=== PATIENT | female | born 1990 | race Caucasian/White ===

== ENCOUNTER 2019-03-26 11:28 | Inpatient (IN) | payer SELFPAY ==
[2019-03-26] MEDS ORDERED: ACETAMINOPHEN 1000 MG/100 ML VIAL (NON FORMULARY) IVPB ONE (12:45)
--- NOTE | 2019-03-26 12:55 | PDOC ---
History of Present Illness - General Chief Complaint: Cold Symptoms Stated Complaint: FEVER/COUGH/HEADACHE Time Seen by Provider: 03/26/19 11:42 - History of Present Illness Initial Comments: 03/26/19 12:53 28-year-old female with a past medical history of renal stones presents for evaluation of back pain x3 days with associated fevers. Past History - Past Medical History Allergies/Adverse Reactions: Allergies Allergy/AdvReac Type Severity Reaction Status Date / Time No Known Allergies Allergy Verified 03/26/19 11:38 Home Medications: Ambulatory Orders Cephalexin [Keflex] 500 mg PO BID 12/02/14 Mv-Mn/Iron/FA/Herbal/Digestive [ One Tablet] 1 each PO DAILY 12/02/14 Ibuprofen [Motrin -] 400 mg PO QID #28 tablet 12/27/14 Anemia: No Asthma: No Cancer: No Cardiac Disorders: No COPD: No Diabetes: No HTN: No Kidney Stones: Yes (with stent) Seizures: No Thyroid Disease: No - Surgical History Abdominal Surgery: No Appendectomy: No Cardiac Surgery: No - Reproductive History Cervical CA: No Dysfunctional Uterine Bleeding: No Ectopic : No Endometrial CA: No Polycystic Ovaries: No Therapeutic (s) & number: No Tubal Ligation: No - Immunization History Immunization Up to Date: No - Psycho Social/Smoking Cessation Hx Smoking Status: Yes Smoking History: Never smoked Have you smoked in the past 12 months: No Number of Cigarettes Smoked Daily: 1 Hx Alcohol Use: No Drug/Substance Use Hx: No Substance Use Type: None Hx Substance Use Treatment: No Review of Systems - Review of Systems Constitutional: Yes: Fever Musculoskeletal: Yes: Back Pain *Physical Exam - Vital Signs Last Vital Signs Temp Pulse Resp BP Pulse Ox 100.5 F H 120 H 18 97/70 98 03/26/19 11:35 03/26/19 11:35 03/26/19 11:35 03/26/19 11:35 03/26/19 11:35 - Physical Exam Comments: 03/26/19 12:54 GENERAL: The patient is awake, alert, and fully oriented, in no acute distress. HEAD: Normal with no signs of trauma. EYES: sclera anicteric, conjunctiva clear. ENT: Ears normal NECK: Normal range of motion LUNGS: Breath sounds equal, clear to auscultation bilaterally. No wheezes, and no crackles. HEART: S1 and S2 without murmur, rub or gallop. ABDOMEN: Diffuse tenderness with the CVA tenderness. EXTREMITIES: Normal range of motion, no edema. No clubbing or cyanosis. No cords, erythema, or tenderness. NEUROLOGICAL: Cranial nerves II through XII grossly intact. Normal speech, normal gait. PSYCH: Normal mood, normal affect. SKIN: Warm, Dry, normal turgor, no rashes or lesions noted. Medical Decision Making - Medical Decision Making 03/26/19 12:54 We will transfer patient to the main emergency room. Tylenol for pain control fluids started as well. Preliminary lab work started will discuss with emergency room attending Discharge - Discharge Information Problems reviewed: Yes Clinical Impression/Diagnosis: Back pain - Follow up/Referral - Patient Discharge Instructions - Post Discharge Activity
[2019-03-26] MEDS ORDERED: SODIUM CHLORIDE 0.9% 500 ML INFUS.BAG IV ONE (13:18)
[2019-03-26] MEDS ORDERED: CEFTRIAXONE 1,000 MG in DEXTROSE 5%-WATER - 50 ML IVPB ONE (13:19)
[2019-03-26] MEDS ORDERED: CEFTRIAXONE 1 GM/50 ML BAG ONE (13:22)
[2019-03-26] MEDS ORDERED: ACETAMINOPHEN INJECTION 100 ML IVPB ONE (13:22)
[2019-03-26 13:28] LABS: BASO % 0.1 % (0-2.0); EOS % 0.9 % (0-4.5); HEMATOCRIT 32.6 % (32.4-45.2); HEMOGLOBIN 10.7 GM/dL (10.7-15.3); LYMPH % 12.8 % (8-40); MCH 30.9 pg (25.7-33.7); MCHC 32.8 g/dl (32.0-36.0); MEAN CELL VOLUME 94.3 fl (80-96); MEAN PLT VOLUME 7.9 fl (7.5-11.1); MONO % 4.2 % (3.8-10.2); PLATELET COUNT 235 K/MM3 (134-434); RBC 3.46 M/mm3 (3.60-5.2); RDW 17.9 % (11.6-15.6)
[2019-03-26 14:26] LABS: EPI CELLS 5.5 /HPF (0-5/HPF); HYALINE CASTS 21 /lpf (0-8); URINE APPEARANCE TURBID; URINE BACTERIA 1665.4 /hpf (NEGATIVE); URINE BILIRUBIN NEGATIVE (NEGATIVE); URINE COLOR YELLOW; URINE GLUCOSE (UA) NEGATIVE (NEGATIVE); URINE KETONE NEGATIVE (NEGATIVE); URINE LEUK ESTERASE 3+ (NEGATIVE); URINE NITRITE POSITIVE (NEGATIVE); URINE PROTEIN 2+ (NEGATIVE); URINE RBC 12 /hpf (0-4); URINE UROBILINOGEN 0.2 mg/dL (0.2-1.0); URINE WBC 440 /hpf (0-5)
[2019-03-26] MEDS ORDERED: SODIUM CHLORIDE 1,000 ML IV STA (14:49)
--- NOTE | 2019-03-26 14:50 | PDOC ---
History of Present Illness - General Chief Complaint: Cold Symptoms Stated Complaint: FEVER/COUGH/HEADACHE Time Seen by Provider: 03/26/19 11:42 Past History - Past Medical History Allergies/Adverse Reactions: Allergies Allergy/AdvReac Type Severity Reaction Status Date / Time No Known Allergies Allergy Verified 03/26/19 11:38 Home Medications: Ambulatory Orders Cephalexin [Keflex] 500 mg PO BID 12/02/14 Mv-Mn/Iron/FA/Herbal/Digestive [ One Tablet] 1 each PO DAILY 12/02/14 Ibuprofen [Motrin -] 400 mg PO QID #28 tablet 12/27/14 - Psycho Social/Smoking Cessation Hx Smoking Status: Yes Smoking History: Never smoked Have you smoked in the past 12 months: No Number of Cigarettes Smoked Daily: 1 Hx Alcohol Use: No Drug/Substance Use Hx: No Substance Use Type: None Hx Substance Use Treatment: No *Physical Exam - Vital Signs Last Vital Signs Temp Pulse Resp BP Pulse Ox 100.5 F H 120 H 18 97/70 98 03/26/19 11:35 03/26/19 11:35 03/26/19 11:35 03/26/19 11:35 03/26/19 11:35 ED Treatment Course - LABORATORY CBC & Chemistry Diagram: 03/26/19 13:17 03/26/19 13:17 Discharge - Discharge Information Clinical Impression/Diagnosis: Back pain - Follow up/Referral - Patient Discharge Instructions - Post Discharge Activity
--- NOTE | 2019-03-26 15:29 | PDOC ---
*Physical Exam - Vital Signs Last Vital Signs Temp Pulse Resp BP Pulse Ox 100.5 F H 120 H 18 97/70 98 03/26/19 11:35 03/26/19 11:35 03/26/19 11:35 03/26/19 11:35 03/26/19 11:35 ED Treatment Course - LABORATORY CBC & Chemistry Diagram: 03/30/19 06:15 03/30/19 06:15 Medical Decision Making - Medical Decision Making 28 year old female with PMH nephrolithiasis s/p left ureter stent presented to ED for fever x3 days. Pt reported her fever has been ranging from 100-103F. She reported bilateral low back pain, low bilateral flank pain x3-5 days. She reported she is due for her period around today or tomorrow. She reported nausea /vomiting, lightheadedness. She denied pelvic pain, pelvic discharge, vaginal bleeding, abdominal pain, chest pain, shortness of breath. Pt reported LMP "a month ago" would not give dates, reported her period is regular every 25 days. Initial Vital Signs Temp Pulse Resp BP Pulse Ox 100.5 F H 120 H 18 97/70 98 03/26/19 11:35 03/26/19 11:35 03/26/19 11:35 03/26/19 11:35 03/26/19 11:35 Febrile. Tachycardic. No tachypnea. Hypotensive. No hypoxia on room air. Laboratory Last Values WBC 11.0 K/mm3 (4.0-10.0) H 03/26/19 13:17 RBC 3.46 M/mm3 (3.60-5.2) L 03/26/19 13:17 Hgb 10.7 GM/dL (10.7-15.3) 03/26/19 13:17 Hct 32.6 % (32.4-45.2) D 03/26/19 13:17 MCV 94.3 fl (80-96) 03/26/19 13:17 MCH 30.9 pg (25.7-33.7) D 03/26/19 13:17 MCHC 32.8 g/dl (32.0-36.0) 03/26/19 13:17 RDW 17.9 % (11.6-15.6) H 03/26/19 13:17 Plt Count 235 K/MM3 (134-434) 03/26/19 13:17 MPV 7.9 fl (7.5-11.1) 03/26/19 13:17 Absolute Neuts (auto) 9.0 K/mm3 (1.5-8.0) H 03/26/19 13:17 Neutrophils % 82.0 % (42.8-82.8) D 03/26/19 13:17 Lymphocytes % 12.8 % (8-40) D 03/26/19 13:17 Monocytes % 4.2 % (3.8-10.2) 03/26/19 13:17 Eosinophils % 0.9 % (0-4.5) 03/26/19 13:17 Basophils % 0.1 % (0-2.0) 03/26/19 13:17 Nucleated RBC % 0 % (0-0) 03/26/19 13:17 Sodium 136 mmol/L (136-145) 03/26/19 14:47 Potassium 3.3 mmol/L (3.5-5.1) L 03/26/19 14:47 Chloride 110 mmol/L (98-107) H 03/26/19 14:47 Carbon Dioxide 18 mmol/L (21-32) L 03/26/19 14:47 Anion Gap 9 MMOL/L (8-16) 03/26/19 14:47 BUN 2.6 mg/dL (7-18) L* 03/26/19 14:47 Creatinine 0.6 mg/dL (0.55-1.3) 03/26/19 14:47 Est GFR (CKD-EPI)AfAm 144.78 03/26/19 14:47 Est GFR (CKD-EPI)NonAf 124.92 03/26/19 14:47 Random Glucose 103 mg/dL (74-106) 03/26/19 14:47 Calcium 7.4 mg/dL (8.5-10.1) L 03/26/19 14:47 Total Bilirubin 0.3 mg/dL (0.2-1) 03/26/19 14:47 AST 27 U/L (15-37) 03/26/19 14:47 ALT 19 U/L (13-61) 03/26/19 14:47 Alkaline Phosphatase 96 U/L (45-117) 03/26/19 14:47 Total Protein 5.7 g/dl (6.4-8.2) L 03/26/19 14:47 Albumin 2.0 g/dl (3.4-5.0) L 03/26/19 14:47 Beta HCG, Quant > 371617.0 mIU/ml 03/26/19 14:47 Urine Color Yellow 03/26/19 13:00 Urine Appearance Turbid 03/26/19 13:00 Urine pH 7.0 (5.0-8.0) 03/26/19 13:00 Ur Specific [place] 1.009 (1.010-1.035) L 03/26/19 13:00 Urine Protein 2+ (NEGATIVE) H 03/26/19 13:00 Urine Glucose (UA) Negative (NEGATIVE) 03/26/19 13:00 Urine Ketones Negative (NEGATIVE) 03/26/19 13:00 Urine Blood 2+ (NEGATIVE) H 03/26/19 13:00 Urine Nitrite Positive (NEGATIVE) H 03/26/19 13:00 Urine Bilirubin Negative (NEGATIVE) 03/26/19 13:00 Urine Urobilinogen 0.2 mg/dL (0.2-1.0) 03/26/19 13:00 Ur Leukocyte Esterase 3+ (NEGATIVE) H 03/26/19 13:00 Urine WBC (Auto) 440 /hpf (0-5) 03/26/19 13:00 Urine RBC (Auto) 12 /hpf (0-4) 03/26/19 13:00 Urine Casts (Auto) 21 /lpf (0-8) 03/26/19 13:00 U Pathogenic Cast Auto None seen /lpf (NEGATIVE) 03/26/19 13:00 U Epithel Cells (Auto) 5.5 /HPF (0-5/HPF) 03/26/19 13:00 Urine Bacteria (Auto) 1665.4 /hpf (NEGATIVE) 03/26/19 13:00 Urine HCG, Qual Positive 03/26/19 13:00 Leukocytosis with left shift. UTI. Urine positive. Beta Quant >200,000. Results given to patient, she reported she thought she was 2/2 breast tenderness and made an appointment with "my doctor". When I asked which doctor she reported her OBGYN. Pt reported she does not think she wants to keep this . Cannot CT pt for nephrolithiasis assessment, will US B/L kidneys to assess for hydro. Will do pelvic US. 03/26/19 16:54 Kidney US report: Name: JEANNIE LEWIS DEPARTMENT OF RADIOLOGY Phys: Iris Danielson RESIDENT : 1990 Age: 28 Sex: F [facility] Acct: [id number] Loc: [address] Exam Date: 03/26/19 Status: [facility] [place] [id number] Unit Number: [id number] EXAM#: TYPE/EXAM: RESULT: [id number] US/KIDNEY / RENAL US Renal ultrasound Clinical information: back pain, UTI, history of stones, Marked left hydronephrosis is seen. There is partial imaging of a nephroureteral stent in place. There is possible visualization of several nonobstructing calculi within the upper pole left renal calyx. Mild right hydronephrosis is noted. No obvious right renal calculus is seen within the limitations of sonography. The kidneys appear unremarkable in position, cortical thickness, echogenicity and size. Each kidney measures approximately 10.4 cm in length. No gross mass lesion is identified. There is no obvious perirenal fluid collection. Impression: Marked left hydronephrosis. There is partial imaging of a nephroureteral stent in place. Possible nonobstructing left renal calyceal calculi. Mild right hydronephrosis. Reported By: Harry Pino MD 03/26/19 1642 TVUS report: Name: JEANNIE LEWIS DEPARTMENT OF RADIOLOGY Phys: Iris Danielson RESIDENT : 1990 Age: 28 Sex: F [facility] Acct: [id number] Loc: [address] Exam Date: 03/26/19 [facility] [place] [address] Unit Number: [id number] EXAM#: TYPE/EXAM: RESULT: [id number] US/ LIMITED US limited ultrasound Clinical information: low back pain, fever, positive urine test The exam demonstrates a single viable intrauterine gestation at approximately 18 weeks 3 days. cardiac rate 144 BPM. Posterior placenta. There is a possible marginal placenta previa. Amniotic fluid volume appears unremarkable on a qualitative basis. The partially visualized structures demonstrate no gross sonographic abnormality. The cervix appears closed measuring 4.4 cm in length. Impression: Single viable intrauterine gestation at approximately 18 weeks 3 days as noted above. Possible marginal placenta previa. Correlate with follow-up sonography. Reported By: Harry Pino MD [id number] Medications ordered: Zosyn IV 03/26/19 17:[address] Kirkland about the patient, he reported the physician who placed the stent must be her urologist now. Pt does not remember who placed the stent, only that she had it done at [facility] and then was transferred to [place]. Will call [facility] to find out who the urologist was. 03/26/19 17:18 [facility]'s reported pt had procedure done in [address] Larios. Will page Dr. Larios. 03/26/19 17:53 Vital Signs Pulse Rate 100 H 03/26/19 17:30 Respiratory Rate 20 03/26/19 17:30 Blood Pressure 94/53 L 03/26/19 17:30 O2 Sat by Pulse Oximetry (%) 98 03/26/19 17:30 Tachycardia improving with Tylenol and IVF. Lactate 0.6 03/26/19 18:27 Dr. Larios paged again. 03/26/19 18:54 Dr. Kirkland's office paged. They reported Dr. Jernigan is continuity clerk. Pt signed out to night resident, pending Urology consult and recommendations. Discharge - Discharge Information Problems reviewed: Yes Clinical Impression/Diagnosis: Obstructive uropathy UTI (urinary tract infection) Qualifiers: Urinary tract infection type: acute cystitis Hematuria presence: without hematuria Qualified Code(s): N30.00 - Acute cystitis without hematuria Qualifiers: Weeks of gestation: 18 weeks Qualified Code(s): Z3A.18 - 18 weeks gestation of Condition: Guarded - Follow up/Referral - Patient Discharge Instructions - Post Discharge Activity
[2019-03-26 15:43] LABS: ALK PHOS 96 U/L (45-117); ANION GAP 9 MMOL/L (8-16); BILIRUBIN,TOTAL 0.3 mg/dL (0.2-1); CALCIUM 7.4 mg/dL (8.5-10.1); CHLORIDE 110 mmol/L (98-107); CO2 18 mmol/L (21-32); CREATININE 0.6 mg/dL (0.55-1.3); GLUCOSE,RANDOM 103 mg/dL (74-106); POTASSIUM 3.3 mmol/L (3.5-5.1); SGOT/AST 27 U/L (15-37); SGPT/ALT 19 U/L (13-61); SODIUM 136 mmol/L (136-145); TOT PROT 5.7 g/dl (6.4-8.2)
[2019-03-26 15:57] LABS: BLOOD UREA NITROGEN 2.6 mg/dL (7-18)
[2019-03-26] MEDS ORDERED: SODIUM CHLORIDE 1,769 ML IV ONE (16:05)
[2019-03-26] MEDS ORDERED: PIPERACILLIN/TAZOB 3.375 GM 3.375 GM in DEXTROSE 5%-WATER - 50 ML IVPB ONE (16:36)
[2019-03-26] MEDS ORDERED: PIPERACILLIN/TAZOB 3.375 GM 3.375 GM/50 ML BAG IVPB ONE (17:06)
--- NOTE | 2019-03-26 17:30 | PDOC ---
Documentation entered by Malia Hook SCRIBE, acting as scribe for Lawson Stoddard MD. Lawson Stoddard MD: This documentation has been prepared by the Miladys aviles Nirvannie, SCRIBE, under my direction and personally reviewed by me in its entirety. I confirm that the documentation accurately reflects all work, treatment, procedures, and medical decision making performed by me. Attending Attestation - Resident Resident Name: JagjitIris - ED Attending Attestation I have performed the following: I have examined & evaluated the patient, The case was reviewed & discussed with the resident, I agree w/resident's findings & plan, Exceptions are as noted - HPI HPI: 03/26/19 16:35 The patient is a 28 year old female, with a significant past medical history of nephrolithiasis (s/p left ureter stenting), who presents to the emergency department with, 3 days of fever (Tmax 103F) with associated bilateral flank and low back pain for approximately 3-5 days. Patient notes she is scheduled to have her menses tomorrow, however she is on testing here today. Pt notes, stent was placed many years ago and is still present. She denies any vaginal bleeding or abnormal vaginal discharge. She denies any dysuria, hematuria, frequency, or urgency. She denies any chest pain or shortness of breath. Denies headaches, focal weakness/numbness. Allergies: NKDA - Physicial Exam PE: 03/26/19 17:17 GENERAL: Awake, alert, and fully oriented, in no acute distress. Non toxic EYES: PERRLA, EOMI, sclera anicteric, conjunctiva clear ENT: Oropharynx clear without exudates. Moist mucosa NECK: Normal ROM, supple, no lymphadenopathy, JVD, or masses LUNGS: Breath sounds equal, clear to auscultation bilaterally. No wheezes, and no crackles HEART: Tachy to 110 but regular, normal S1 and S2, no murmurs, rubs or gallops ABDOMEN: Soft, nontender, normoactive bowel sounds. No guarding, no rebound. Gravid uterus : L>R CVAT EXTREMITIES: Normal range of motion, no edema. No clubbing or cyanosis. No cords, erythema, or tenderness. WWP. NEUROLOGICAL: Normal speech, cranial nerves intact, equal strength and sensation b/l SKIN: Warm, Dry, normal turgor, no rashes or lesions noted. - Medical Decision Making 03/26/19 17:21 28-year-old female presents the emergency department with flank pain, fever, + UA all concerning for pyelonephritis. Patient with a history of a ureteral stent that was placed 7 years ago at [facility] by Dr. Larios. Urine test is positive. Pt did not know she was . Transvaginal ultrasound confirms an 18-week viable . Patient's clinical presentation today is concerning for pyelonephritis with possible obstructing stone in the setting of . She has hydronephrosis noted on her ultrasound left greater than right. Due to the possible obstruction , patient was broadened from ceftriaxone to Zosyn. Plan to discuss stent management and obstruction with Dr. Larios and admit 03/26/19 19:[address] Larios, stent to be removed tomorrow Pt to be admitted for continued IV abx, further mgmt
--- NOTE | 2019-03-26 19:19 | PDOC ---
*Physical Exam - Vital Signs Last Vital Signs Temp Pulse Resp BP Pulse Ox 100.5 F H 100 H 20 94/53 L 98 03/26/19 11:35 03/26/19 17:30 03/26/19 17:30 03/26/19 17:30 03/26/19 17:30 - Physical Exam Comments: Patient signed out by Dr. Danielson 28yo F with fever and bilateral flank pain Discussed case with Dr. Bert Larios, urologist, who will recommends admission, NPO after midnight, fluids, strained urine. Plan to remove the stent tomorrow. 03/26/19 19:15 MB sent to symphony team by nc-- Received reply that symphony is not workplace relations adviser. Call to Dr. Kern, , which went to voicemail. Will try to call again. 03/26/19 19:[address] Kern who accepted patient for admission under med/ surg admission. Per her request, consult to Dr. Gong, ID, placed. 03/26/19 19:42 ED Treatment Course - LABORATORY CBC & Chemistry Diagram: 03/26/19 13:17 03/26/19 14:47 - ADDITIONAL ORDERS Additional order review: Laboratory Results 03/26/19 03/26/19 03/26/19 17:15 17:15 14:47 Sodium 136 Potassium 3.3 L Chloride 110 H Carbon Dioxide 18 L Anion Gap 9 BUN 2.6 L* Creatinine 0.6 Est GFR (CKD-EPI)AfAm 144.78 Est GFR (CKD-EPI)NonAf 124.92 Random Glucose 103 Lactic Acid 0.6 Calcium 7.4 L Total Bilirubin 0.3 AST 27 ALT 19 Alkaline Phosphatase 96 Total Protein 5.7 L Albumin 2.0 L Beta HCG, Quant > 180693.0 Urine Color Urine Appearance Urine pH Ur Specific [place] Urine Protein Urine Glucose (UA) Urine Ketones Urine Blood Urine Nitrite Urine Bilirubin Urine Urobilinogen Ur Leukocyte Esterase Urine WBC (Auto) Urine RBC (Auto) Urine Casts (Auto) U Pathogenic Cast Auto U Epithel Cells (Auto) Urine Bacteria (Auto) Urine HCG, Qual Blood Type O POSITIVE Antibody Screen Negative 03/26/19 03/26/19 03/26/19 13:17 13:00 13:00 Sodium Cancelled Potassium Cancelled Chloride Cancelled Carbon Dioxide Cancelled Anion Gap Cancelled BUN Cancelled Creatinine Cancelled Est GFR (CKD-EPI)AfAm Cancelled Est GFR (CKD-EPI)NonAf Cancelled Random Glucose Cancelled Lactic Acid Calcium Cancelled Total Bilirubin Cancelled AST Cancelled ALT Cancelled Alkaline Phosphatase Cancelled Total Protein Cancelled Albumin Cancelled Beta HCG, Quant Urine Color Yellow Urine Appearance Turbid Urine pH 7.0 Ur Specific [place] 1.009 L Urine Protein 2+ H Urine Glucose (UA) Negative Urine Ketones Negative Urine Blood 2+ H Urine Nitrite Positive H Urine Bilirubin Negative Urine Urobilinogen 0.2 Ur Leukocyte Esterase 3+ H Urine WBC (Auto) 440 Urine RBC (Auto) 12 Urine Casts (Auto) 21 U Pathogenic Cast Auto None seen U Epithel Cells (Auto) 5.5 Urine Bacteria (Auto) 1665.4 Urine HCG, Qual Positive Blood Type Antibody Screen 03/26/19 13:17 RBC 3.46 L MCV 94.3 MCHC 32.8 RDW 17.9 H MPV 7.9 Neutrophils % 82.0 D Lymphocytes % 12.8 D Monocytes % 4.2 Eosinophils % 0.9 Basophils % 0.1 - Medications Given in the ED: ED Medications Discontinued Medications Generic Name Dose Route Start Last Admin Trade Name Freq PRN Reason Stop Dose Admin Acetaminophen 1,000 mg 03/26/19 12:45 03/26/19 13:32 Ofirmev Injection - IVPB 03/26/19 12:46 1,000 mg ONCE ONE Administration Ceftriaxone Sodium 1,000 mg/ 50 mls @ 100 mls/hr 03/26/19 13:19 03/26/19 13: 32 Dextrose IVPB 03/26/19 13:48 100 mls/hr ONCE ONE Administration Sodium Chloride 1,000 mls @ 1,000 mls/hr 03/26/19 14:49 03/26/19 15:17 Normal Saline - IV 03/26/19 15:48 1,000 mls/hr ASDIR STA Administration Sodium Chloride 1,769 mls @ 884.5 mls/hr 03/26/19 16:05 03/26/19 16:57 Normal Saline - 30 ml/kg infuse over 2 hr (1769 ml) 03/26/19 18:04 Not Given IV ONCE ONE Piperacillin Sod/Tazobactam 50 mls @ 100 mls/hr 03/26/19 16:36 03/26/19 17:23 Sod 3.375 gm/ Dextrose IVPB 03/26/19 17:05 100 mls/hr ONCE ONE Administration Protocol Sodium Chloride 1,000 ml 03/26/19 13:18 03/26/19 13:32 Normal Saline - IV 03/26/19 13:19 1,000 ml ONCE ONE Administration Discharge - Discharge Information Problems reviewed: Yes Clinical Impression/Diagnosis: Obstructive uropathy UTI (urinary tract infection) Qualifiers: Urinary tract infection type: acute cystitis Hematuria presence: without hematuria Qualified Code(s): N30.00 - Acute cystitis without hematuria Qualifiers: Weeks of gestation: 18 weeks Qualified Code(s): Z3A.18 - 18 weeks gestation of Condition: Guarded - Admission Yes - Follow up/Referral - Patient Discharge Instructions - Post Discharge Activity
--- NOTE | 2019-03-26 20:14 | HP ---
Admitting History and Physical - Primary Care Physician PCP: Efra Kern - Admission History of Present Illness: 28 year old female with PMH nephrolithiasis s/p left ureter stent presented to ED for fever x3 days. Pt reported her fever has been ranging from 100-103F. She reported bilateral low back pain, low bilateral flank pain x3-5 days. She reported she is due for her period around today or tomorrow. She reported nausea /vomiting, lightheadedness. She denied pelvic pain, pelvic discharge, vaginal bleeding, abdominal pain, chest pain, shortness of breath. Pt reported LMP "a month ago" would not give dates, reported her period is regular every 25 days. - Past Medical History ...LMP: 07/24/12 ...: Yes Heme/Onc: Yes: Anemia - Smoking History Smoking history: Never smoked Have you smoked in the past 12 months: No Aproximately how many cigarettes per day: 1 - Alcohol/Substance Use Hx Alcohol Use: No - Social History History of Recent Travel: No Home Medications - Allergies Allergies/Adverse Reactions: Allergies Allergy/AdvReac Type Severity Reaction Status Date / Time No Known Allergies Allergy Verified 03/26/19 11:38 - Home Medications Home Medications: Ambulatory Orders Mv-Mn/Iron/FA/Herbal/Digestive [ One Tablet] 1 each PO DAILY 12/02/14 Ibuprofen [Motrin -] 600 mg PO TID PRN 03/28/19 Physical Examination Vital Signs: Vital Signs Temperature 100.5 F H 03/26/19 11:35 Pulse Rate 100 H 03/26/19 17:30 Respiratory Rate 20 03/26/19 17:30 Blood Pressure 94/53 L 03/26/19 17:30 O2 Sat by Pulse Oximetry (%) 98 03/26/19 17:30 Constitutional: Yes: No Distress HENT: Yes: Atraumatic Neck: Yes: Supple Cardiovascular: Yes: Regular Rate and Rhythm Respiratory: Yes: CTA Bilaterally Gastrointestinal: Yes: Normal Bowel Sounds Extremities: Yes: WNL Edema: No Neurological: Yes: Alert, Oriented Labs: CBC, BMP 03/26/19 13:17 03/26/19 14:47 Problem List - Problems (1) Obstructive uropathy Assessment/Plan: dr Barb rodgers..will take her to OR tomorrow Code(s): N13.9 - OBSTRUCTIVE AND REFLUX UROPATHY, UNSPECIFIED (2) Assessment/Plan: will put obgyn consult 18 weeks , patient was unaware of it...as per patient Code(s): Z33.1 - STATE, INCIDENTAL Qualifiers: Weeks of gestation: 18 weeks Qualified Code(s): Z3A.18 - 18 weeks gestation of (3) UTI (urinary tract infection) Assessment/Plan: iv abx id consult Code(s): N39.0 - URINARY TRACT INFECTION, SITE NOT SPECIFIED Qualifiers: Urinary tract infection type: acute cystitis Hematuria presence: without hematuria Qualified Code(s): N30.00 - Acute cystitis without hematuria (4) Acute urinary tract infection Code(s): N39.0 - URINARY TRACT INFECTION, SITE NOT SPECIFIED (5) Kidney stone Assessment/Plan: will be seen by urology in am OR? Code(s): N20.0 - CALCULUS OF KIDNEY Assessment/Plan Laboratory Tests 03/26/19 03/26/19 03/26/19 13:00 13:00 13:17 WBC 11.0 H RBC 3.46 L Hgb 10.7 Hct 32.6 D MCV 94.3 MCH 30.9 D MCHC 32.8 RDW 17.9 H Plt Count 235 MPV 7.9 Absolute Neuts (auto) 9.0 H Total Counted Neutrophils % 82.0 D Neutrophils % (Manual) Band Neutrophils % Lymphocytes % 12.8 D Lymphocytes % (Manual) Monocytes % 4.2 Monocytes % (Manual) Eosinophils % 0.9 Eosinophils % (Manual) Basophils % 0.1 Basophils % (Manual) Myelocytes % (Man) Promyelocytes % (Man) Blast Cells % (Manual) Nucleated RBC % 0 Metamyelocytes Differential Comment Hypochromia Toxic Granulation Platelet Estimate Platelet Comment Polychromasia Poikilocytosis Anisocytosis Microcytosis Macrocytosis Ovalocytes Elizabeth Cells PT with INR INR PTT (Actin FS) Sodium Potassium Chloride Carbon Dioxide Anion Gap BUN Creatinine Est GFR (CKD-EPI)AfAm Est GFR (CKD-EPI)NonAf Random Glucose Lactic Acid Calcium Phosphorus Magnesium Total Bilirubin AST ALT Alkaline Phosphatase Total Protein Albumin Beta HCG, Quant Urine Color Yellow Urine Appearance Turbid Urine pH 7.0 Ur Specific [place] 1.009 L Urine Protein 2+ H Urine Glucose (UA) Negative Urine Ketones Negative Urine Blood 2+ H Urine Nitrite Positive H Urine Bilirubin Negative Urine Urobilinogen 0.2 Ur Leukocyte Esterase 3+ H Urine WBC (Auto) 440 Urine RBC (Auto) 12 Urine Casts (Auto) 21 U Pathogenic Cast Auto None seen U Epithel Cells (Auto) 5.5 Urine Bacteria (Auto) 1665.4 Urine HCG, Qual Positive Blood Type Antibody Screen 03/26/19 03/26/19 03/26/19 13:17 14:47 17:15 WBC RBC Hgb Hct MCV MCH MCHC RDW Plt Count MPV Absolute Neuts (auto) Total Counted Neutrophils % Neutrophils % (Manual) Band Neutrophils % Lymphocytes % Lymphocytes % (Manual) Monocytes % Monocytes % (Manual) Eosinophils % Eosinophils % (Manual) Basophils % Basophils % (Manual) Myelocytes % (Man) Promyelocytes % (Man) Blast Cells % (Manual) Nucleated RBC % Metamyelocytes Differential Comment Hypochromia Toxic Granulation Platelet Estimate Platelet Comment Polychromasia Poikilocytosis Anisocytosis Microcytosis Macrocytosis Ovalocytes [place] Cells PT with INR INR PTT (Actin FS) Sodium Cancelled 136 Potassium Cancelled 3.3 L Chloride Cancelled 110 H Carbon Dioxide Cancelled 18 L Anion Gap Cancelled 9 BUN Cancelled 2.6 L* Creatinine Cancelled 0.6 Est GFR (CKD-EPI)AfAm Cancelled 144.78 Est GFR (CKD-EPI)NonAf Cancelled 124.92 Random Glucose Cancelled 103 Lactic Acid 0.6 Calcium Cancelled 7.4 L Phosphorus Magnesium Total Bilirubin Cancelled 0.3 AST Cancelled 27 ALT Cancelled 19 Alkaline Phosphatase Cancelled 96 Total Protein Cancelled 5.7 L Albumin Cancelled 2.0 L Beta HCG, Quant > 399530.0 Urine Color Urine Appearance Urine pH Ur Specific [place] Urine Protein Urine Glucose (UA) Urine Ketones Urine Blood Urine Nitrite Urine Bilirubin Urine Urobilinogen Ur Leukocyte Esterase Urine WBC (Auto) Urine RBC (Auto) Urine Casts (Auto) U Pathogenic Cast Auto U Epithel Cells (Auto) Urine Bacteria (Auto) Urine HCG, Qual Blood Type Antibody Screen 03/26/19 03/26/19 03/27/19 17:15 21:32 20:35 WBC 10.1 H RBC 2.50 L Hgb 7.6 L Hct 23.4 L D MCV 93.5 MCH 30.6 MCHC 32.7 RDW 14.8 D Plt Count MPV 8.5 Absolute Neuts (auto) 9.9 H Total Counted 100 Neutrophils % 98.0 H Neutrophils % (Manual) 75.0 Band Neutrophils % 23.0 Lymphocytes % 1.5 L D Lymphocytes % (Manual) 2.0 L Monocytes % 0.4 L D Monocytes % (Manual) Eosinophils % 0.0 D Eosinophils % (Manual) Basophils % 0.1 Basophils % (Manual) Myelocytes % (Man) Promyelocytes % (Man) Blast Cells % (Manual) Nucleated RBC % 0 Metamyelocytes Differential Comment Man diff performed Hypochromia Toxic Granulation 1+ Platelet Estimate Decreased Platelet Comment Slide scanned. Polychromasia 1+ Poikilocytosis 1+ Anisocytosis Microcytosis Macrocytosis Ovalocytes 1+ Elizabeth Cells 1+ PT with INR 12.30 INR 1.04 PTT (Actin FS) 26.4 Sodium Potassium Chloride Carbon Dioxide Anion Gap BUN Creatinine Est GFR (CKD-EPI)AfAm Est GFR (CKD-EPI)NonAf Random Glucose Lactic Acid Calcium Phosphorus Magnesium Total Bilirubin AST ALT Alkaline Phosphatase Total Protein Albumin Beta HCG, Quant Urine Color Urine Appearance Urine pH Ur Specific [place] Urine Protein Urine Glucose (UA) Urine Ketones Urine Blood Urine Nitrite Urine Bilirubin Urine Urobilinogen Ur Leukocyte Esterase Urine WBC (Auto) Urine RBC (Auto) Urine Casts (Auto) U Pathogenic Cast Auto U Epithel Cells (Auto) Urine Bacteria (Auto) Urine HCG, Qual Blood Type O POSITIVE Antibody Screen Negative 03/27/19 03/27/19 03/28/19 23:15 23:15 06:00 WBC 13.5 H 20.6 H RBC 2.42 L 2.45 L Hgb 7.3 L 7.5 L Hct 22.6 L 22.7 L MCV 93.5 92.7 MCH 30.1 30.6 MCHC 32.2 33.1 RDW 14.8 14.9 Plt Count 110 L D 107 L MPV 7.9 8.1 Absolute Neuts (auto) 13.3 H 19.7 H Total Counted 100 Neutrophils % 98.4 H 95.6 H Neutrophils % (Manual) 79.0 63.0 Band Neutrophils % 14.0 H 35.0 Lymphocytes % 1.0 L D 2.6 L D Lymphocytes % (Manual) 5.0 L 2.0 L Monocytes % 0.4 L 1.7 L D Monocytes % (Manual) 2 L 0 L Eosinophils % 0.0 0.0 Eosinophils % (Manual) 0.0 Basophils % 0.2 0.1 Basophils % (Manual) 0.0 Myelocytes % (Man) 0 Promyelocytes % (Man) 0 Blast Cells % (Manual) 0 Nucleated RBC % 0 0 Metamyelocytes 5 H 0 Differential Comment Hypochromia 2+ 0 Toxic Granulation Platelet Estimate Slt decrease Decreased Platelet Comment No clotting detected Polychromasia 0 Poikilocytosis 0 Anisocytosis 0 Microcytosis 0 Macrocytosis 0 Ovalocytes Elizabeth Cells PT with INR INR PTT (Actin FS) Sodium Potassium Chloride Carbon Dioxide Anion Gap BUN Creatinine Est GFR (CKD-EPI)AfAm Est GFR (CKD-EPI)NonAf Random Glucose Lactic Acid Calcium Phosphorus Magnesium Total Bilirubin AST ALT Alkaline Phosphatase Total Protein Albumin Beta HCG, Quant Urine Color Urine Appearance Urine pH Ur Specific [place] Urine Protein Urine Glucose (UA) Urine Ketones Urine Blood Urine Nitrite Urine Bilirubin Urine Urobilinogen Ur Leukocyte Esterase Urine WBC (Auto) Urine RBC (Auto) Urine Casts (Auto) U Pathogenic Cast Auto U Epithel Cells (Auto) Urine Bacteria (Auto) Urine HCG, Qual Blood Type O POSITIVE Antibody Screen Negative 03/28/19 03/28/19 06:00 18:00 WBC RBC Hgb Hct MCV MCH MCHC RDW Plt Count MPV Absolute Neuts (auto) Total Counted Neutrophils % Neutrophils % (Manual) Band Neutrophils % Lymphocytes % Lymphocytes % (Manual) Monocytes % Monocytes % (Manual) Eosinophils % Eosinophils % (Manual) Basophils % Basophils % (Manual) Myelocytes % (Man) Promyelocytes % (Man) Blast Cells % (Manual) Nucleated RBC % Metamyelocytes Differential Comment Hypochromia Toxic Granulation Platelet Estimate Platelet Comment Polychromasia Poikilocytosis Anisocytosis Microcytosis Macrocytosis Ovalocytes Elizabeth Cells PT with INR INR PTT (Actin FS) Sodium 143 140 Potassium 2.9 L* 3.5 Chloride 121 H 115 H Carbon Dioxide 14 L 16 L Anion Gap 8 9 BUN 4.3 L 7.3 Creatinine 0.7 0.8 Est GFR (CKD-EPI)AfAm 137.62 117.10 Est GFR (CKD-EPI)NonAf 118.74 101.04 Random Glucose 83 90 Lactic Acid Calcium 6.6 L* 7.6 L Phosphorus 1.7 L Magnesium 1.1 L Total Bilirubin 0.8 AST 109 H ALT 39 Alkaline Phosphatase 106 Total Protein 4.3 L Albumin 1.4 L Beta HCG, Quant Urine Color Urine Appearance Urine pH Ur Specific [place] Urine Protein Urine Glucose (UA) Urine Ketones Urine Blood Urine Nitrite Urine Bilirubin Urine Urobilinogen Ur Leukocyte Esterase Urine WBC (Auto) Urine RBC (Auto) Urine Casts (Auto) U Pathogenic Cast Auto U Epithel Cells (Auto) Urine Bacteria (Auto) Urine HCG, Qual Blood Type Antibody Screen Active Medications Generic Name Dose Route Start Last Admin Trade Name Christo PRN Reason Stop Dose Admin Acetaminophen 1,000 mg 03/27/19 17:44 03/28/19 19:17 Ofirmev Injection - IVPB 1,000 mg Q6H PRN Administration FEVER Heparin Sodium (Porcine) 5,000 unit 03/28/19 14:00 03/28/19 15:55 Heparin - SQ 5,000 unit TID SILVER Administration Lactated Ringer's 1,000 ml in 1,000 mls @ 125 mls/hr 03/28/19 08:15 03/28/19 12:14 Lactated Ringers Solution IV 125 mls/hr ASDIR SILVER Administration Norepinephrine Bitartrate 8, 500 mls @ 18.75 mls/hr 03/28/19 12:15 000 mcg/ Dextrose IV TITR SILVER Protocol 5 MCG/MIN Cefepime HCl 2 gm/ Dextrose 100 mls @ 200 mls/hr 03/29/19 18:00 IVPB Q8H-IV SILVER Protocol
[2019-03-26] MEDS ORDERED: SODIUM CHLORIDE 1,000 ML IV SCH (20:30)
[2019-03-26 22:14] LABS: INR 1.04 (0.83-1.09); PROTHROMBIN TIME (PATIENT) 12.3 SEC (9.7-13.0)
[2019-03-26 22:16] LABS: ACTIVATED PTT 26.4 SECONDS (25.2-36.5)
[2019-03-27] MEDS ORDERED: ACETAMINOPHEN INJECTION 100 ML IVPB ONE ×2 (07:29→14:49)
[2019-03-27] MEDS ORDERED: ACETAMINOPHEN 1000 MG/100 ML VIAL (NON FORMULARY) IVPB ONE ×2 (07:29→14:57)
--- NOTE | 2019-03-27 10:16 | CONS ---
DATE OF CONSULTATION: DATE OF DICTATION: 03/27/2019 HISTORY OF PRESENT ILLNESS: Patient is a 28-year-old female admitted via the emergency room last night complaining of fever and flank pain. She states that her temperatures were ranging between 100 and 103 Fahrenheit. She also reported the history of nephrolithiasis. She underwent a left ureteroscopic laser lithotripsy with placement of a left JJ stent in October 2017. She has been lost to follow up. She also is complaining of nausea, vomiting and lightheadedness. She denies any chest pain. She states that her LMP was more than a month ago, but would not give dates. She reported that her menstrual cycle is regular every 28 days. She does history of anemia. She denies ethanol or tobacco. ALLERGIES: She denies any allergies. PHYSICAL EXAMINATION: Vitals: In the emergency room, her temperature was 100.5. Her pulse was 100, respiration 20; blood pressure 24/53, pulse oximetry was 89%. She appeared to be in no apparent distress. Chest: Her chest is clear. Heart: Regular rhythm. Abdomen: Soft. There was some bilateral CVA tenderness. LABORATORY DATA: Her CBC revealed a white count of 11,000, hemoglobin of 10.7, hematocrit 32.6, platelets were 235. BUN was 2.6, creatinine 0.6 and random glucose was 103. The patient's laboratory data revealed her beta-hCG in the urine was greater than 20,000 indicative of the presence of . Her urine revealed a large amount of blood, as well as nitrate positive. Urine cultures revealed lactose fermenting negative bacilli. Blood cultures are still pending. Her temperature for the past 24 hours has been less than 100 Fahrenheit. Her latest blood pressure is 108/55, pulse 106, respirations 20. An ultrasound of her kidneys in the emergency room revealed marked left hydronephrosis. There appeared to be a stent in the left renal unit with calcifications. There was a possible left non-obstructing renal calyceal stone and there was some mild right-sided hydronephrosis. The patient also underwent an OB ultrasound, which revealed a single viable intrauterine gestation at approximately 18 weeks and 3 days with a possible marginal placenta previa. This should be correlated with follow up ultrasound. IMPRESSION: At present is left pyelonephritis with left hydronephrosis in a patient with history of left nephrolithiasis and retained left JJ stent. Patient is in her first trimester. RECOMMENDATIONS: Will recommend IV antibiotics as per Infectious Disease consult. Will follow up and will recommend removal of double-J stents when patient is medically stable. This could be done under local anesthesia. Will follow with you. Thank you. MERCY JOY M.D. [id number]
--- NOTE | 2019-03-27 10:34 | EKG ---
Test Reason : Blood Pressure : / mmHG Vent. Rate : 086 BPM Atrial Rate : 086 BPM P-R Int : 144 ms QRS Dur : 076 ms QT Int : 390 ms P-R-T Axes : 039 039 023 degrees QTc Int : 466 ms NORMAL SINUS RHYTHM NORMAL ECG NO PREVIOUS ECGS AVAILABLE Confirmed by Gilbert Lujan MD ([id number]) on 03/27/2019 10:34:12 AM Referred By: Confirmed By:Gilbert Lujan MD
--- NOTE | 2019-03-27 11:46 | PN ---
Progress Note (short form) - Note Progress Note: ID CONSULT DICTATED COMPLICATED UTI OBSTRUCTIVE UROPATHY/URETERAL STENT 18 W IUP AWAIT C/S EMPIRIC CEFTRIAXONE UROLOGY EVALUATION
[2019-03-27] MEDS ORDERED: CEFTRIAXONE 2 GM in DEXTROSE 5%-WATER 100 ML IVPB SCH (12:15)
[2019-03-27] MEDS ORDERED: CEFTRIAXONE 2 GM/100 ML BAG IVPB ONE (12:20)
--- NOTE | 2019-03-27 14:23 | CONS ---
DATE OF CONSULTATION: DATE OF DICTATION: 03/27/2019 CHIEF COMPLAINT: The patient is a 28-year-old female with a history of 18-week intrauterine gestation, evaluated for possible urosepsis. HISTORY OF PRESENT ILLNESS: She was admitted to the hospital with a 2- to 3-day history of dysuria and fever as well as left-sided flank pain. She was evaluated in the emergency room where she was noted to have fever of 100.5, elevated white blood cell count 11,000, and pyuria. Urine culture and blood cultures were obtained. She was empirically treated with Zosyn. Urine culture is growing a nonlactose cake maker. Blood cultures preliminarily are negative. She continues to complain of left flank pain and some mild dysuria. The patient has a history of nephrolithiasis. She has required a left ureteral stent which she reports has been present for some time. She has been seen in consultation by Urology. ALLERGIES: No known allergies. MEDICATIONS: Medications at the present time include Tylenol, ceftriaxone, Zosyn. SOCIAL HISTORY: She resides in the community. Nonsmoker, nondrinker. REVIEW OF SYSTEMS: Neurologic: No loss of consciousness, seizure activity, focal weakness. Cardiac: Negative chest pain or palpitations. Respiratory: Negative cough or sputum production. Gastrointestinal: Negative vomiting or diarrhea. Genitourinary: As per HPI. LABORATORY DATA: White count 11.0, 32.6, platelets 135, BUN 2.6, creatinine 0.6. Urinalysis: White cells 440. Blood cultures preliminarily negative. Urine culture lactose cake maker. PHYSICAL EXAMINATION: General: She is awake. She is alert. She is in no acute distress. Vital Signs: Temperature 99.3, T-max 100.5. Blood pressure 105/55, pulse 106, regular. Respirations 22 per minute. HEENT: Sclerae are anicteric. Cardiovascular: Heart sounds S1, S2. Lungs: Clear. Abdomen: Mild left CVA tenderness to palpation. No suprapubic tenderness. Extremities: Negative for edema. IMPRESSION: 1. Complicated urinary tract infection. 2. Obstructive uropathy status post ureteral stent. 3. Eighteen-week intrauterine . Await culture results. Continue empiric ceftriaxone 2 g IV piggyback daily pending cultures. Urology followup. Will follow. Thank you for the kind referral. NICOL WAY M.D. [id number]
--- NOTE | 2019-03-27 17:44 | PN ---
Progress Note, Physician History of Present Illness: fever low bp - Current Medication List Current Medications: Active Medications Sodium Chloride (Normal Saline -) 1,000 mls @ 75 mls/hr IV ASDIR SILVER Last Admin: 03/26/19 21:45 Dose: 75 mls/hr Ceftriaxone Sodium 2 gm/ (Dextrose) 100 mls @ 200 mls/hr IVPB DAILY SILVER; Protocol Last Admin: 03/27/19 12:25 Dose: 200 mls/hr - Objective Vital Signs: Vital Signs Temperature 102.6 F H 03/27/19 14:48 Pulse Rate 140 H 03/27/19 14:48 Respiratory Rate 22 H 03/27/19 14:48 Blood Pressure 100/52 L 03/27/19 14:48 O2 Sat by Pulse Oximetry (%) 99 03/27/19 14:48 Constitutional: Yes: No Distress HENT: Yes: Atraumatic Neck: Yes: Supple Cardiovascular: Yes: Regular Rate and Rhythm Respiratory: Yes: CTA Bilaterally Gastrointestinal: Yes: Normal Bowel Sounds Extremities: Yes: WNL Edema: No Neurological: Yes: Alert, Oriented Labs: CBC, BMP 03/26/19 13:17 03/26/19 14:47 INR, PTT INR 1.04 (0.83-1.09) 03/26/19 21:32 Problem List - Problems (1) Obstructive uropathy Assessment/Plan: s/p nephrostomy tube Code(s): N13.9 - OBSTRUCTIVE AND REFLUX UROPATHY, UNSPECIFIED (2) Assessment/Plan: obgyn consult.. 18 weeks , patient was unaware of it...as per patient Code(s): Z33.1 - STATE, INCIDENTAL Qualifiers: Weeks of gestation: 18 weeks Qualified Code(s): Z3A.18 - 18 weeks gestation of (3) UTI (urinary tract infection) Assessment/Plan: iv abx id consult Code(s): N39.0 - URINARY TRACT INFECTION, SITE NOT SPECIFIED Qualifiers: Urinary tract infection type: acute cystitis Hematuria presence: without hematuria Qualified Code(s): N30.00 - Acute cystitis without hematuria (4) Acute urinary tract infection Code(s): N39.0 - URINARY TRACT INFECTION, SITE NOT SPECIFIED (5) Kidney stone Code(s): N20.0 - CALCULUS OF KIDNEY (6) Sepsis Assessment/Plan: ivf iv abx transfer to icu Code(s): A41.9 - SEPSIS, UNSPECIFIED ORGANISM
--- NOTE | 2019-03-27 18:57 | CONSULT ---
Consultation: REQUESTING PROVIDER: CONSULT REQUEST: We have been asked to medically evaluate this patient for ICU monitoring. HISTORY OF PRESENT ILLNESS: Patient is a 28 yo female w/ pmh of nephrolithiasis s/p left ureteral stent who presented for evaluation to ER of 3 days of fever ranging from 100-103. Patient additionally reported LURDES lower back pain and flank pain for 3-5 days and reported she was expecting her period. Denied pelvic symptoms or other complaints. Patient was found to be on evaluation with a beta quant level of over 200,000 with additional UTI. Patient was evaluated with pelvic US as well as LURDES kidney US. US revealed nephroureteral stent with possible non- obstructing calculi w/in upper pole of left renal calyx. Mild R hydronephrosis was also noted. TVUS revealed single IUP at 18 weeks and 3 days w/ HR of 144. Posterior placenta w/ possible marginal placenta previa. Patient was placed on zosyn IV and patient's urologist Dr. Larios was consulted. Dr. Larios evaluated patient today and told patient he would do procedure tomorrow. Upon evaluation this evening by PCP patient was noted to be hypotensive despite fluid resuscitation. Patient accepted to ICU for sepsis complicated by . REVIEW OF SYSTEMS: CONSTITUTIONAL: Present: Fever over time period as described as well as current with concurrent weakness and diaphoresis. , Absent: No malaise, loss of appetite, weight change HEENT: Absent: rhinorrhea, nasal congestion, throat pain, throat swelling, difficulty swallowing, mouth swelling, ear pain, eye pain, visual changes CARDIOVASCULAR: Absent: chest pain, syncope, palpitations, irregular heart rate, lightheadedness , peripheral edema RESPIRATORY: Absent: cough, shortness of breath, dyspnea with exertion, orthopnea, wheezing, stridor, hemoptysis GASTROINTESTINAL: Present: Back pain over time period with additional feeling of bloating currently. Absent: nausea, vomiting, diarrhea, constipation, melena, hematochezia GENITOURINARY: Present: L sided flank pain. Absent: dysuria, frequency, urgency, hesitancy, hematuria, genital pain MUSCULOSKELETAL: Absent: myalgia, arthralgia, joint swelling, back pain, neck pain SKIN: Absent: rash, itching, pallor HEMATOLOGIC/IMMUNOLOGIC: Absent: easy bleeding, easy bruising, lymphadenopathy, frequent infections ENDOCRINE: Absent: unexplained weight gain, unexplained weight loss, heat intolerance, cold intolerance NEUROLOGIC: Absent: headache, focal weakness or paresthesias, dizziness, unsteady gait, seizure, mental status changes, bladder or bowel incontinence PSYCHIATRIC: Absent: anxiety, depression, suicidal or homicidal ideation, hallucinations. PHYSICAL EXAMINATION Vital Signs - 24 hr 03/27/19 03/27/19 03/27/19 07:36 08:12 12:48 Temperature 99.3 F Pulse Rate 106 H 77 Pulse Rate [ Left Radial] Pulse Rate [ Right Lower Arm ] Respiratory 20 15 Rate Respiratory Rate [Right Lower Arm] Blood Pressure 108/55 L 107/72 Blood Pressure [Left Arm] Blood Pressure [Right Lower Arm] O2 Sat by Pulse 95 100 Oximetry (%) O2 Sat by Pulse Oximetry (%) [ Right Lower Arm ] 03/27/19 03/27/19 03/27/19 13:09 13:12 13:21 Temperature Pulse Rate Pulse Rate [ Left Radial] Pulse Rate [ 74 96 H 77 Right Lower Arm ] Respiratory Rate Respiratory 15 16 15 Rate [Right Lower Arm] Blood Pressure Blood Pressure [Left Arm] Blood Pressure 106/75 106/77 106/77 [Right Lower Arm] O2 Sat by Pulse Oximetry (%) O2 Sat by Pulse 100 100 100 Oximetry (%) [ Right Lower Arm ] 03/27/19 03/27/19 03/27/19 13:28 14:48 18:05 Temperature 102.6 F H 101 F H Pulse Rate 111 H 140 H Pulse Rate [ 140 H 123 H Left Radial] Pulse Rate [ Right Lower Arm ] Respiratory 15 22 H 22 H Rate Respiratory Rate [Right Lower Arm] Blood Pressure 107/78 Blood Pressure 100/52 L 75/37 L [Left Arm] Blood Pressure [Right Lower Arm] O2 Sat by Pulse 100 99 93 L Oximetry (%) O2 Sat by Pulse Oximetry (%) [ Right Lower Arm ] GENERAL: +Patient visibly uncomfortable. Awake, alert, and fully oriented. HEAD: Normal with no signs of trauma. EYES: Pupils equal, round and reactive to light, extraocular movements intact, sclera anicteric, conjunctiva clear. No lid lag. EARS, NOSE, THROAT: Ears normal, nares patent, oropharynx clear without exudates. Moist mucous membranes. NECK: Normal range of motion, supple without lymphadenopathy, JVD, or masses. LUNGS: Breath sounds equal, clear to auscultation bilaterally. No wheezes, and no crackles. No accessory muscle use. HEART: Regular rate and rhythm, normal S1 and S2 without murmur, rub or gallop. ABDOMEN: +L sided drain visualized w/ blood noted in bag. +TTP in L upper and lower quadrants. Bowel sounds decreased. No guarding, no rebound, no masses. No hepatomegaly or splenomegaly. MUSCULOSKELETAL: +L sided CVA tenderness. Normal range of motion at all joints. No bony deformities or tenderness. UPPER EXTREMITIES: 2+ pulses, warm, well-perfused. No cyanosis. No clubbing. Cap refill <2 seconds. No peripheral edema. LOWER EXTREMITIES: 2+ pulses, warm, well-perfused. No calf tenderness. No peripheral edema. NEUROLOGICAL: Cranial nerves II-XII intact. Normal speech. Normal gait. PSYCHIATRIC: Cooperative. Good eye contact. Appropriate mood and affect. SKIN: Warm, dry, normal turgor, no rashes or lesions noted. Laboratory Results - last 24 hr 03/26/19 21:32 PT with INR 12.30 INR 1.04 PTT (Actin FS) 26.4 Active Medications Generic Name Dose Route Start Last Admin Trade Name Freq PRN Reason Stop Dose Admin Acetaminophen 1,000 mg 03/27/19 17:44 Ofirmev Injection - IVPB Q6H PRN FEVER Sodium Chloride 1,000 mls @ 75 mls/hr 03/26/19 20:30 03/26/19 21:45 Normal Saline - IV 75 mls/hr ASDIR SILVER Administration Ceftriaxone Sodium 2 gm/ 100 mls @ 200 mls/hr 03/27/19 12:15 03/27/19 12:25 Dextrose IVPB 200 mls/hr DAILY SILVER Administration Protocol ASSESSMENT/PLAN: Patient is a 28 yo female w/ pmh of nephrolithiasis who presents for evaluation of likely infected L sided stone. Patient s/p IR procedure today with drain in place. #Urology - Patient s/p IR guided drainage with significant blood noted in drain collection bag. IR aware. Bag drained and will re-evaluate with repeat H/H in 1 hour #ID - Discussed patient with ID who recommends broadening coverage to cefepime 2g Q8. Rocephin discontinued. #Neuro - AAOx3 #Cardio - Currently hypotensive; resuscitating w/ sepsis fluids 30cc's/kg - Monitor for signs of bradycardia, tachycadia #Pulm - maintain O2 saturation >90% #GI - NPO #FEN - Bolus fluids for hypotension - monitor and replete lytes as needed #Disposition - ICU monitoring Dispo: We will continue to follow the patient. Thank you for this consultative opportunity. Visit type - Emergency Visit Emergency Visit: Yes ED Registration Date: 03/26/19 Care time: The patient presented to the Emergency Department on the above date and was hospitalized for further evaluation of their emergent condition. - New Patient This patient is new to me today: Yes Date on this admission: 03/28/19 - Critical Care Critical Care patient: Yes Total Critical Care Time (in minutes): 49 Critical Care Statement: The care of this patient involved high complexity decision making to prevent further life threatening deterioration of the patient 's condition and/or to evaluate & treat vital organ system(s) failure or risk of failure. ATTENDING PHYSICIAN STATEMENT I saw and evaluated the patient. I reviewed the resident's note and discussed the case with the resident. I agree with the resident's findings and plan as documented. SUBJECTIVE: OBJECTIVE: ASSESSMENT AND PLAN:
[2019-03-27] MEDS ORDERED: SODIUM CHLORIDE 1,000 ML IV STA (19:13)
[2019-03-27] MEDS ORDERED: CEFEPIME 2 GM/100 ML BAG IVPB ONE (20:26)
[2019-03-27] MEDS: CEFEPIME HCL/D5W 2 GM/50 ML BAG IVPB SCH (20:29)
[2019-03-27 21:18] LABS: BASO % 0.1 % (0-2.0); HEMATOCRIT 23.4 % (32.4-45.2); HEMOGLOBIN 7.6 GM/dL (10.7-15.3); LYMPH % 1.5 % (8-40); MCH 30.6 pg (25.7-33.7); MCHC 32.7 g/dl (32.0-36.0); MEAN CELL VOLUME 93.5 fl (80-96); MEAN PLT VOLUME 8.5 fl (7.5-11.1); MONO % 0.4 % (3.8-10.2); RDW 14.8 % (11.6-15.6); WHITE BLOOD COUNT 10.1 K/mm3 (4.0-10.0)
[2019-03-27] MEDS ORDERED: SODIUM CHLORIDE 1,000 ML IV SCH (22:57)
[2019-03-27 23:01] LABS: OVALOCYTE 1+
[2019-03-27 23:02] LABS: TOXIC GRANULATION 1+
[2019-03-27 23:03] LABS: PLATELET ESTIMATE DECREASED
[2019-03-27 23:32] LABS: BASO % 0.2 % (0-2.0); HEMATOCRIT 22.6 % (32.4-45.2); HEMOGLOBIN 7.3 GM/dL (10.7-15.3); MCH 30.1 pg (25.7-33.7); MCHC 32.2 g/dl (32.0-36.0); MEAN CELL VOLUME 93.5 fl (80-96); MEAN PLT VOLUME 7.9 fl (7.5-11.1); MONO % 0.4 % (3.8-10.2); NEUT % 98.4 % (42.8-82.8); PLATELET COUNT 110 K/MM3 (134-434); RBC 2.42 M/mm3 (3.60-5.2); RDW 14.8 % (11.6-15.6); WHITE BLOOD COUNT 13.5 K/mm3 (4.0-10.0)
--- NOTE | 2019-03-28 00:16 | PROC ---
Central Line Insertion Indication: Sepsis Risks and Benefits Explained: Yes Consent on Chart: Yes Central Line: Triple Lumen Catheter Anesthesia: 1% Lidocaine Sterile Technique: Yes Ultrasound Guided Assistance: Yes Position: Right Internal Jugular Post Insertion: Yes: Bilateral Breath Sounds, Bilateral Chest Expansion, Chest X-Ray Ordered Sterile Dressing Applied: Yes Remarks: Patient repeat H/H decreased 0.3 over 3 hours. Patient remaining hypotensive despite 4L bolus. Central line placed over concern for possible pressor requirement.
[2019-03-28] MEDS ORDERED: MEPERIDINE HCL CARPU-JECT 50 MG/1 ML DISP.SYRIN IM ONE (02:29)
[2019-03-28] MEDS ORDERED: LIDOCAINE 5% TOPICAL PATCH TP ONE (02:30)
[2019-03-28 03:38] LABS: PLATELET ESTIMATE SLT DECREASE
[2019-03-28] MEDS: CEFEPIME HCL/D5W 2 GM/50 ML BAG IVPB SCH (04:30)
[2019-03-28] MEDS ORDERED: PT OWN MED DRAWER 7, Y5N ONE (06:04)
[2019-03-28 06:58] LABS: BASO % 0.1 % (0-2.0); HEMATOCRIT 22.7 % (32.4-45.2); HEMOGLOBIN 7.5 GM/dL (10.7-15.3); LYMPH % 2.6 % (8-40); MCH 30.6 pg (25.7-33.7); MCHC 33.1 g/dl (32.0-36.0); MEAN CELL VOLUME 92.7 fl (80-96); MEAN PLT VOLUME 8.1 fl (7.5-11.1); MONO % 1.7 % (3.8-10.2); NEUT % 95.6 % (42.8-82.8); PLATELET COUNT 107 K/MM3 (134-434); RBC 2.45 M/mm3 (3.60-5.2); RDW 14.9 % (11.6-15.6); WHITE BLOOD COUNT 20.6 K/mm3 (4.0-10.0)
[2019-03-28 07:27] LABS: ALBUMIN 1.4 g/dl (3.4-5.0); BILIRUBIN,TOTAL 0.8 mg/dL (0.2-1); BLOOD UREA NITROGEN 4.3 mg/dL (7-18); CREATININE 0.7 mg/dL (0.55-1.3); MAGNESIUM 1.1 mg/dL (1.8-2.4); PHOSPHOROUS 1.7 mg/dL (2.5-4.9); TOT PROT 4.3 g/dl (6.4-8.2)
[2019-03-28 07:36] LABS: CALCIUM 6.6 mg/dL (8.5-10.1); POTASSIUM 2.9 mmol/L (3.5-5.1)
[2019-03-28] MEDS ORDERED: POTASSIUM PHOSPHATE 30 MM in DEXTROSE 5%-WATER - 250 ML IVPB ONE (07:44)
[2019-03-28] MEDS ORDERED: MAGNESIUM SULF 50% (8.12 MEQ/2 ML-1 GM VIAL) IVPB ONE (07:44)
[2019-03-28] MEDS ORDERED: POTASSIUM CHLORIDE ORAL LIQUID 20 MEQ/15 ML PO ONE (07:45)
[2019-03-28] MEDS ORDERED: CEFEPIME 2 GM in DEXTROSE 5%-WATER 100 ML IVPB SCH (08:12)
[2019-03-28] MEDS ORDERED: LACTATED RINGERS SOLUTION 1,000 ML/1,000 ML INFUS.BAG IV SCH (08:15)
[2019-03-28] MEDS: ACETAMINOPHEN 1000 MG/100 ML VIAL (NON FORMULARY) IVPB PRN ×2 (09:35→19:17)
[2019-03-28] MEDS ORDERED: FLU VACCINE QUAD 60 MCG/0.5 ML (MDV 19-20) IM ONE (10:00)
--- NOTE | 2019-03-28 11:12 | PN ---
Teaching Attending Note Name of Resident: Isela Gaines ATTENDING PHYSICIAN STATEMENT I saw and evaluated the patient. I reviewed the resident's note and discussed the case with the resident. I agree with the resident's findings and plan as documented. SUBJECTIVE: Pt seen and examined in the ICU. Blood pressure improved with IVF resuscitation. Does report some shortness of breath. Still with abdominal and left flank tenderness. OBJECTIVE: Vital Signs Period Temp Pulse Resp BP Sys/Macedo Pulse Ox Last 24 Hr 97.6 F-102.6 F 74-140 15-31 74-107/37-78 93-100 Intake & Output 03/25/19 03/26/19 03/27/19 03/28/19 23:59 23:59 23:59 23:59 Intake Total 3000 2400 Output Total 125 900 Balance 2875 1500 Weight 58.967 kg 58.967 kg 66.678 kg Gen: pain with movements Heart: tachycardic, regular Lung: decreased breath sounds at the bases Abd: soft, nontender Ext: no edema CBC, BMP 03/28/19 06:00 03/28/19 06:00 Active Medications Acetaminophen (Ofirmev Injection -) 1,000 mg IVPB Q6H PRN PRN Reason: FEVER Last Admin: 03/28/19 09:35 Dose: 1,000 mg Cefepime HCl (Maxipime 2gm Ivpb (Premix)) 2 gm in 50 mls @ 100 mls/hr IVPB Q8H- IV SILVER; Protocol Potassium Phosphate 30 mm/ (Dextrose) 260 mls @ 62.5 mls/hr IVPB ONCE ONE Stop: 03/28/19 11:53 Lactated Ringer's (Lactated Ringers Solution) 1,000 ml in 1,000 mls @ 125 mls/ hr IV ASDIR SILVER ASSESSMENT AND PLAN: UTI Nephrolithiasis Bilateral Hydronephrosis s/p left nephrostomy tube placement Sepsis Volume Overload Anemia Thrombocytopenia Intrauterine - continue antibiotics - f/u cultures - urology f/u - replete lytes - d/c IVF - lasix if breathing worsens - O2 to keep SpO2 >90% - DVT prophylaxis
[2019-03-28] MEDS ORDERED: FUROSEMIDE 40 MG/4 ML INJECTABLE VIAL IVPUSH ONE (11:14)
--- NOTE | 2019-03-28 11:15 | PN ---
Physical Exam: SUBJECTIVE: Patient seen and examined. Complaining of some difficulty breathing when lying on her back, improved when lying on her side. Also complains of a front headache. Patient states that she is not likely to continue with this current . OBJECTIVE: Vital Signs Period Temp Pulse Resp BP Sys/[place]acedo Pulse Ox Last 24 Hr 97.6 F-102.6 F 74-140 15-31 74-107/37-78 93-100 GENERAL: The patient is awake, alert, and fully oriented, in mild distress due to pain. HEAD: Normal with no signs of trauma. EYES: PERRL, EOMI ENT: moist mucous membranes. NECK: Trachea midline, full range of motion, supple. LUNGS: Breath sounds equal, clear to auscultation bilaterally, no wheezes, no crackles, no accessory muscle use. HEART: Tachycardic ABDOMEN: diffuse abdominal tenderness to palpation EXTREMITIES: 2+ pulses, warm, well-perfused, no edema. NEUROLOGICAL: Cranial nerves II through XII grossly intact. Normal speech, gait not observed. PSYCH: Normal mood, normal affect. SKIN: Warm, dry, normal turgor, no rashes or lesions noted Laboratory Results - last 24 hr 03/27/19 03/27/19 03/27/19 20:35 23:15 23:15 WBC 10.1 H 13.5 H RBC 2.50 L 2.42 L Hgb 7.6 L 7.3 L Hct 23.4 L D 22.6 L MCV 93.5 93.5 MCH 30.6 30.1 MCHC 32.7 32.2 RDW 14.8 D 14.8 Plt Count 110 L D MPV 8.5 7.9 Absolute Neuts (auto) 9.9 H 13.3 H Total Counted 100 100 Neutrophils % 98.0 H 98.4 H Neutrophils % (Manual) 75.0 79.0 Band Neutrophils % 23.0 14.0 H Lymphocytes % 1.5 L D 1.0 L D Lymphocytes % (Manual) 2.0 L 5.0 L Monocytes % 0.4 L D 0.4 L Monocytes % (Manual) 2 L Eosinophils % 0.0 D 0.0 Basophils % 0.1 0.2 Nucleated RBC % 0 0 Metamyelocytes 5 H Differential Comment Man diff performed Hypochromia 2+ Toxic Granulation 1+ Platelet Estimate Decreased Slt decrease Platelet Comment Slide scanned. No clotting detected Polychromasia 1+ Poikilocytosis 1+ Ovalocytes 1+ Elizabeth Cells 1+ Sodium Potassium Chloride Carbon Dioxide Anion Gap BUN Creatinine Est GFR (CKD-EPI)AfAm Est GFR (CKD-EPI)NonAf Random Glucose Calcium Phosphorus Magnesium Total Bilirubin AST ALT Alkaline Phosphatase Total Protein Albumin Blood Type O POSITIVE Antibody Screen Negative 03/28/19 03/28/19 06:00 06:00 WBC 20.6 H RBC 2.45 L Hgb 7.5 L Hct 22.7 L MCV 92.7 MCH 30.6 MCHC 33.1 RDW 14.9 Plt Count 107 L MPV 8.1 Absolute Neuts (auto) 19.7 H Total Counted Neutrophils % 95.6 H Neutrophils % (Manual) Band Neutrophils % Lymphocytes % 2.6 L D Lymphocytes % (Manual) Monocytes % 1.7 L D Monocytes % (Manual) Eosinophils % 0.0 Basophils % 0.1 Nucleated RBC % 0 Metamyelocytes Differential Comment Hypochromia Toxic Granulation Platelet Estimate Platelet Comment Polychromasia Poikilocytosis Ovalocytes Barnett Cells Sodium 143 Potassium 2.9 L* Chloride 121 H Carbon Dioxide 14 L Anion Gap 8 BUN 4.3 L Creatinine 0.7 Est GFR (CKD-EPI)AfAm 137.62 Est GFR (CKD-EPI)NonAf 118.74 Random Glucose 83 Calcium 6.6 L* Phosphorus 1.7 L Magnesium 1.1 L Total Bilirubin 0.8 AST 109 H ALT 39 Alkaline Phosphatase 106 Total Protein 4.3 L Albumin 1.4 L Blood Type Antibody Screen Active Medications Generic Name Dose Route Start Last Admin Trade Name Freq PRN Reason Stop Dose Admin Acetaminophen 1,000 mg 03/27/19 17:44 03/28/19 09:35 Ofirmev Injection - IVPB 1,000 mg Q6H PRN Administration FEVER Heparin Sodium (Porcine) 5,000 unit 03/28/19 14:00 Heparin - SQ TID SILVER Cefepime HCl 2 gm in 50 mls @ 100 mls/hr 03/28/19 18:00 Maxipime 2gm Ivpb (Premix) IVPB Q8H-IV SILVER Protocol Potassium Phosphate 30 mm/ 260 mls @ 62.5 mls/hr 03/28/19 07:44 Dextrose IVPB 03/28/19 11:53 ONCE ONE Lactated Ringer's 1,000 ml in 1,000 mls @ 125 mls/hr 03/28/19 08:15 Lactated Ringers Solution IV ASDIR SILVER ASSESSMENT/PLAN: 28 y/o/f with PMHx of nephrolithiasis who presents for evaluation of likely infected L sided stone. Patient s/p IR procedure with drain in place. #Neuro - AAOx3 - IV Tylenol for pain control #Urology - Patient s/p IR guided drainage with drain in place - Will need stent removal when medically stable #ID - Continue Cefepime IV 2g Q8hr. Rocephin discontinued - Leukocytosis 20.6, afebrile, monitor - ID on board #Cardio - CVP monitoring - Levophed for BP support as needed - Monitor for signs of bradycardia, tachycadia - Patient has received >4L of fluids, still remains intermittently hypotensive #Pulm - maintain O2 saturation >90% - CXR 03/28 - blunting of right costophrenic angle - Lasix 20mg once - Encourage incentive spirometer #GI - NPO after midnight #Prophylaxis - Heparin - SCDs #FEN - monitor and replete lytes as needed - NPO after midnight, diet today - Fluids discontinued due to worsening CXR #Disposition - continue ICU monitoring Visit type - Emergency Visit Emergency Visit: Yes ED Registration Date: 03/26/19 Care time: The patient presented to the Emergency Department on the above date and was hospitalized for further evaluation of their emergent condition. - New Patient This patient is new to me today: Yes Date on this admission: 03/28/19 - Critical Care Critical Care patient: Yes Total Critical Care Time (in minutes): 36 Critical Care Statement: The care of this patient involved high complexity decision making to prevent further life threatening deterioration of the patient 's condition and/or to evaluate & treat vital organ system(s) failure or risk of failure. ATTENDING PHYSICIAN STATEMENT I saw and evaluated the patient. I reviewed the resident's note and discussed the case with the resident. I agree with the resident's findings and plan as documented. SUBJECTIVE: OBJECTIVE: ASSESSMENT AND PLAN:
[2019-03-28 11:22] LABS: ANISOCYTOSIS 0; MACROCYTOSIS 0; PLATELET ESTIMATE DECREASED
[2019-03-28 14:59] VITALS: BMI 29.7
[2019-03-28] MEDS: HEPARIN NA (PORCINE) 5,000 UNITS/ML 1ML VIAL SQ SCH ×2 (15:55→21:07)
[2019-03-28] MEDS ORDERED: CEFEPIME HCL/D5W 2 GM/50 ML BAG IVPB SCH (18:00)
--- NOTE | 2019-03-28 18:11 | PN ---
Progress Note, Physician History of Present Illness: PT SEEN EARLIER TODAY S/P L PCN NO C/O FLANK PAIN OR DYSURIA TEMPS DOWN WBC INCREASED PLT LOWER BC PRELIM (-) URINE GROWING E COLI - Current Medication List Current Medications: Active Medications Acetaminophen (Ofirmev Injection -) 1,000 mg IVPB Q6H PRN PRN Reason: FEVER Last Admin: 03/28/19 09:35 Dose: 1,000 mg Heparin Sodium (Porcine) (Heparin -) 5,000 unit SQ TID SILVER Last Admin: 03/28/19 15:55 Dose: 5,000 unit Cefepime HCl (Maxipime 2gm Ivpb (Premix)) 2 gm in 50 mls @ 100 mls/hr IVPB Q8H- IV SILVER; Protocol Lactated Ringer's (Lactated Ringers Solution) 1,000 ml in 1,000 mls @ 125 mls/ hr IV ASDIR SILVER Last Admin: 03/28/19 12:14 Dose: 125 mls/hr Norepinephrine Bitartrate 8, (000 mcg/ Dextrose) 500 mls @ 18.75 mls/hr IV TITR SILVER; Protocol - Objective Vital Signs: Vital Signs Temperature 97.4 F L 03/28/19 14:00 Pulse Rate 106 H 03/28/19 16:00 Respiratory Rate 20 03/28/19 16:00 Blood Pressure 94/54 L 03/28/19 16:00 O2 Sat by Pulse Oximetry (%) 96 03/28/19 10:00 Constitutional: Yes: No Distress Cardiovascular: Yes: Regular Rate and Rhythm, S1, S2 Respiratory: Yes: CTA Bilaterally Gastrointestinal: Yes: Normal Bowel Sounds, Soft. 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
--- NOTE | 2019-03-28 19:20 | PN ---
Progress Note, Physician History of Present Illness: feeling better - Current Medication List Current Medications: Active Medications Acetaminophen (Ofirmev Injection -) 1,000 mg IVPB Q6H PRN PRN Reason: FEVER Last Admin: 03/28/19 19:17 Dose: 1,000 mg Heparin Sodium (Porcine) (Heparin -) 5,000 unit SQ TID SILVER Last Admin: 03/28/19 15:55 Dose: 5,000 unit Lactated Ringer's (Lactated Ringers Solution) 1,000 ml in 1,000 mls @ 125 mls/ hr IV ASDIR SILVER Last Admin: 03/28/19 12:14 Dose: 125 mls/hr Norepinephrine Bitartrate 8, (000 mcg/ Dextrose) 500 mls @ 18.75 mls/hr IV TITR SILVER; Protocol Cefepime HCl 2 gm/ Dextrose 100 mls @ 200 mls/hr IVPB Q8H-IV SILVER; Protocol - Objective Vital Signs: Vital Signs Temperature 97.4 F L 03/28/19 14:00 Pulse Rate 106 H 03/28/19 16:00 Respiratory Rate 20 03/28/19 16:00 Blood Pressure 94/54 L 03/28/19 16:00 O2 Sat by Pulse Oximetry (%) 96 03/28/19 10:00 Constitutional: Yes: No Distress HENT: Yes: Atraumatic Neck: Yes: Supple Cardiovascular: Yes: Regular Rate and Rhythm Respiratory: Yes: CTA Bilaterally Gastrointestinal: Yes: Normal Bowel Sounds Extremities: Yes: WNL Neurological: Yes: Alert, Oriented Labs: CBC, BMP 03/28/19 06:00 03/28/19 06:00 INR, PTT INR 1.04 (0.83-1.09) 03/26/19 21:32 Problem List - Problems (1) Obstructive uropathy Assessment/Plan: s/p nephrostomy tube Code(s): N13.9 - OBSTRUCTIVE AND REFLUX UROPATHY, UNSPECIFIED (2) Assessment/Plan: obgyn consult.. 18 weeks , patient was unaware of it...as per patient Code(s): Z33.1 - STATE, INCIDENTAL Qualifiers: Weeks of gestation: 18 weeks Qualified Code(s): Z3A.18 - 18 weeks gestation of (3) UTI (urinary tract infection) Assessment/Plan: iv abx id consult Code(s): N39.0 - URINARY TRACT INFECTION, SITE NOT SPECIFIED Qualifiers: Urinary tract infection type: acute cystitis Hematuria presence: without hematuria Qualified Code(s): N30.00 - Acute cystitis without hematuria (4) Acute urinary tract infection Code(s): N39.0 - URINARY TRACT INFECTION, SITE NOT SPECIFIED (5) Kidney stone Code(s): N20.0 - CALCULUS OF KIDNEY (6) Sepsis Assessment/Plan: ivf iv abx on pressors Code(s): A41.9 - SEPSIS, UNSPECIFIED ORGANISM
[2019-03-28] MEDS: NOREPINEPHRINE BITARTRATE 8,000 MCG in DEXTROSE 5%-WATER - 492 ML IV SCH (20:00)
[2019-03-28 20:10] LABS: BLOOD UREA NITROGEN 7.3 mg/dL (7-18); CALCIUM 7.6 mg/dL (8.5-10.1); CREATININE 0.8 mg/dL (0.55-1.3); POTASSIUM 3.5 mmol/L (3.5-5.1)
--- NOTE | 2019-03-28 21:53 | CON.OBG ---
Consult Consult Specialty:: OBGYN Referred by:: Dr. Kern Reason for Consultation:: - History of Present Illness History of Present Illness: 28 year old female with PMH nephrolithiasis s/p left ureter stent presented to ED for fever x3 days. Pt reported her fever has been ranging from 100-103F. She reported bilateral low back pain, low bilateral flank pain x3-5 days. She reported she is due for her period around today or tomorrow. She reported nausea /vomiting, lightheadedness. She denied pelvic pain, pelvic discharge, vaginal bleeding, abdominal pain, chest pain, shortness of breath. Pt reported LMP "a month ago" would not give dates, reported her period is regular every 25 days. OBGYN consulted due to incidental finding of second trimester gestation. I came to see this 28yo who admits to have left flank pain. She did not know about the before coming to the ER; therefore no care. OB sonogram reviewed; there's evidence of an 18 weeks gestation. - History Source History Provided By: Patient Limitations to Obtaining History: No Limitations - Past Medical History ...LMP: 07/24/12 ...: Yes - Past Surgical History Additional Surgical History: Sten placement - Alcohol/Substance Use Hx Alcohol Use: No - Smoking History Smoking history: Never smoked Have you smoked in the past 12 months: No Aproximately how many cigarettes per day: 1 - Social History History of Recent Travel: No Home Medications - Allergies Allergies/Adverse Reactions: Allergies Allergy/AdvReac Type Severity Reaction Status Date / Time No Known Allergies Allergy Verified 03/26/19 11:38 - Home Medications Home Medications: Ambulatory Orders Mv-Mn/Iron/FA/Herbal/Digestive [ One Tablet] 1 each PO DAILY 12/02/14 Ibuprofen [Motrin -] 600 mg PO TID PRN 03/28/19 Family Medical History Family History: Unremarkable Review of Systems - Review of Systems Constitutional: denies: Chills Eyes: reports: No Symptoms Neck: reports: No Symptoms Cardiovascular: reports: No Symptoms Respiratory: denies: SOB on Exertion Gastrointestinal: reports: Other (Left flank pain). 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: Vital Signs Temperature 97.4 F L 03/28/19 14:00 Pulse Rate 117 H 03/28/19 20:00 Respiratory Rate 22 H 03/28/19 20:14 Blood Pressure 105/62 03/28/19 20:00 O2 Sat by Pulse Oximetry (%) 96 03/28/19 20:14 Constitutional: No: No Distress Eyes: Yes: Conjunctiva Clear Neck: Yes: Supple Cardiovascular: Yes: Regular Rate and Rhythm Respiratory: Yes: Regular Gastrointestinal: Yes: Normal Bowel Sounds Pelvis: No: Tenderness External Genitalia: Yes: Normal Vaginal Exam: Yes: Normal Cervix: Yes: Normal Uterus: Yes: Other (Gravid) Musculoskeletal: Yes: Back Pain, Other (Right and left flank pain) Extremities: No: Calf Tenderness Neurological: Yes: Alert, Oriented ...Motor Strength: WNL Psychiatric: Yes: Alert, Oriented Labs: CBC, BMP 03/28/19 06:00 03/28/19 18:00 Problem List - Problems (1) Pyelonephritis affecting in second trimester Problems reviewed: Yes Code(s): O23.02 - INFECTIONS OF KIDNEY IN , SECOND TRIMESTER (2) 18 weeks gestation of Problems reviewed: Yes Code(s): Z3A.18 - 18 WEEKS GESTATION OF Assessment/Plan 18 weeks gestation Pyelonephritis affecting Sepsis Continue IV antibiotic F/U in clinic for care as outpatient Upon discharge, send patient home on PO antibiotic ( Keflex ) for 10 days
[2019-03-28] MEDS ORDERED: LIDOCAINE PATCH REMOVAL MC SCH (22:00)
[2019-03-29] MEDS ORDERED: NOREPINEPHRINE BITARTRATE 4 MG/4 ML ML IV ONE (02:21)
[2019-03-29] MEDS: ACETAMINOPHEN 1000 MG/100 ML VIAL (NON FORMULARY) IVPB PRN ×2 (02:23→09:14)
[2019-03-29] MEDS: HEPARIN NA (PORCINE) 5,000 UNITS/ML 1ML VIAL SQ SCH ×3 (05:41→21:08)
[2019-03-29 07:10] LABS: BASO % 0.1 % (0-2.0); EOS % 0.9 % (0-4.5); HEMATOCRIT 25.8 % (32.4-45.2); HEMOGLOBIN 8.5 GM/dL (10.7-15.3); LYMPH % 12.2 % (8-40); MCH 30.4 pg (25.7-33.7); MCHC 32.9 g/dl (32.0-36.0); MEAN CELL VOLUME 92.4 fl (80-96); MEAN PLT VOLUME 8.9 fl (7.5-11.1); MONO % 3.1 % (3.8-10.2); NEUT % 83.7 % (42.8-82.8); PLATELET COUNT 96 K/MM3 (134-434); RBC 2.79 M/mm3 (3.60-5.2); RDW 14.8 % (11.6-15.6); WHITE BLOOD COUNT 16.1 K/mm3 (4.0-10.0)
[2019-03-29 07:39] LABS: ALBUMIN 1.6 g/dl (3.4-5.0); BILIRUBIN,TOTAL 0.4 mg/dL (0.2-1); BLOOD UREA NITROGEN 5.3 mg/dL (7-18); CREATININE 0.7 mg/dL (0.55-1.3); MAGNESIUM 1.6 mg/dL (1.8-2.4); PHOSPHOROUS 2.5 mg/dL (2.5-4.9); TOT PROT 4.9 g/dl (6.4-8.2)
[2019-03-29 07:46] LABS: POTASSIUM 2.8 mmol/L (3.5-5.1)
--- NOTE | 2019-03-29 09:02 | PN ---
Teaching Attending Note Name of Resident: Isela Gaines ATTENDING PHYSICIAN STATEMENT I saw and evaluated the patient. I reviewed the resident's note and discussed the case with the resident. I agree with the resident's findings and plan as documented. SUBJECTIVE: Pt seen and examined in the ICU. Started on levophed gtt overnight. c/o headache. OBJECTIVE: Vital Signs Period Temp Pulse Resp BP Sys/Macedo Pulse Ox Last 24 Hr 97.4 F-98.1 F 78-117 12-29 92-114/48-86 96-96 Intake & Output 03/26/19 03/27/19 03/28/19 03/29/19 23:59 23:59 23:59 23:59 Intake Total 3000 2400 2207 Output Total 125 1600 600 Balance 2875 800 1607 Weight 58.967 kg 58.967 kg 66.678 kg Gen: NAD at rest Heart: RRR Lung: decreased breath sounds at the bases Abd: soft, mild TTP diffusely Ext: no edema CBC, BMP 03/29/19 06:00 03/29/19 06:00 Active Medications Acetaminophen (Ofirmev Injection -) 1,000 mg IVPB Q6H PRN PRN Reason: FEVER Last Admin: 03/29/19 02:23 Dose: 1,000 mg Heparin Sodium (Porcine) (Heparin -) 5,000 unit SQ TID SILVER Last Admin: 03/29/19 05:41 Dose: 5,000 unit Norepinephrine Bitartrate 8, (000 mcg/ Dextrose) 500 mls @ 18.75 mls/hr IV TITR SILVER; Protocol Last Titration: 03/29/19 00:00 Dose: 10 mcg/min, 37.5 mls/hr Cefepime HCl 2 gm/ Dextrose 100 mls @ 200 mls/hr IVPB Q8H-IV SILVER; Protocol ASSESSMENT AND PLAN: UTI Nephrolithiasis Bilateral Hydronephrosis s/p left nephrostomy tube placement Septic Shock Volume Overload Anemia Thrombocytopenia Intrauterine - continue antibiotics - urology f/u - replete lytes - titrate pressors to maintain MAP >65 - O2 to keep SpO2 >90% - DVT prophylaxis - continue ICU monitoring
[2019-03-29] MEDS ORDERED: MAGNESIUM SULF 50% (8.12 MEQ/2 ML-1 GM VIAL) IVPB ONE (09:13)
[2019-03-29] MEDS ORDERED: CEFEPIME 2 GM in DEXTROSE 5%-WATER 100 ML IVPB ONE (10:00)
[2019-03-29] MEDS: KCL 10 MEQ IVPB 10 MEQ/100 ML INFUS.BAG IVPB SCH ×3 (10:36→12:36)
--- NOTE | 2019-03-29 11:31 | PN ---
Progress Note, Physician History of Present Illness: AWAKE, ALERT IN BED NO C/O FLANK PAIN OR DYSURIA TEMPS DOWN WBC IMPROVED PLT LOW BC (-) URINE C/S E COLI - Current Medication List Current Medications: Active Medications Heparin Sodium (Porcine) (Heparin -) 5,000 unit SQ TID SILVER Last Admin: 03/29/19 05:41 Dose: 5,000 unit Norepinephrine Bitartrate 8, (000 mcg/ Dextrose) 500 mls @ 18.75 mls/hr IV TITR SILVER; Protocol Last Titration: 03/29/19 11:20 Dose: 7.5 mcg/min, 28.12 mls/hr Cefepime HCl 2 gm/ Dextrose 100 mls @ 200 mls/hr IVPB Q8H-IV SILVER; Protocol Potassium Chloride (Potassium Chloride 10 Meq Premix Ivpb -) 10 meq in 100 mls @ 100 mls/hr IVPB Q60M SILVER Stop: 03/29/19 12:14 Last Admin: 03/29/19 10:36 Dose: 100 mls/hr - Objective Vital Signs: Vital Signs Temperature 98.8 F 03/29/19 10:00 Pulse Rate 100 H 03/29/19 11:20 Respiratory Rate 13 03/29/19 10:00 Blood Pressure 119/77 03/29/19 11:20 O2 Sat by Pulse Oximetry (%) 96 03/29/19 08:00 Constitutional: Yes: No Distress Eyes: Yes: Conjunctiva Clear Cardiovascular: Yes: Regular Rate and Rhythm, S1, S2 Respiratory: Yes: CTA Bilaterally Gastrointestinal: Yes: Normal Bowel Sounds, Soft. No: Tenderness Genitourinary: Yes: Other (L PCN) Edema: No Labs: CBC, BMP 03/29/19 06:00 03/29/19 06:00 INR, PTT INR 1.04 (0.83-1.09) 03/26/19 21:32 Assessment/Plan UTI R/O SEPSIS SECONDARY TO UTI HX URETERAL OBSTRUCTION S/P L PCN 18W IUP SUBSTITUTE CEFAZOLIN 2GM Q8H UROLOGY/ DIVER HELPER FOLLOW UP
--- NOTE | 2019-03-29 12:07 | PN ---
Progress Note (short form) - Note Progress Note: UROLOGY NOTE 28 Y/O Female patient 18 weeks, admitted for left pyelonephritis due to obstructed jj stent. left nephrostomy inserted and draining clear urine less pain no fever no hematuria. soft lax abd. WBC 16 HB 8 BUN 5.3 S.Creat. 0.7 Plan: keep nephrostomy and continue antibiotic. no urology intervention at this point. once she finish her will remove the old jj stent. will see patient in the office next week 9 am
[2019-03-29] MEDS: NOREPINEPHRINE BITARTRATE 8,000 MCG in DEXTROSE 5%-WATER - 492 ML IV SCH ×2 (12:15→17:53)
--- NOTE | 2019-03-29 12:44 | PN ---
Physical Exam: SUBJECTIVE: Patient seen and examined. States breathing has been improving. Complains of not being able to get out of bed due to weakness and deconditioning. Also complains of some abd pain but is otherwise well. Started of Levophed overnight for BP support. OBJECTIVE: Vital Signs Period Temp Pulse Resp BP Sys/Macedo Pulse Ox Last 24 Hr 97.4 F-98.8 F 78-117 12-29 92-119/48-86 96-96 GENERAL: The patient is awake, alert, and fully oriented, in no acute distress. HEAD: Normal with no signs of trauma. EYES: PERRL, no ptosis ENT: moist mucous membranes NECK: Trachea midline, full range of motion, supple. LUNGS: Breath sounds equal, clear to auscultation bilaterally, no wheezes, no crackles, no accessory muscle use. HEART: Regular rate and rhythm, S1, S2 without murmur, rub or gallop. ABDOMEN: mild diffuse tenderness to palpation, soft, nondistended, normoactive bowel sounds EXTREMITIES: 2+ pulses, warm, well-perfused, no edema. NEUROLOGICAL: Normal speech, gait not observed. Laboratory Results - last 24 hr 03/28/19 03/29/19 03/29/19 18:00 06:00 06:00 WBC 16.1 H RBC 2.79 L Hgb 8.5 L Hct 25.8 L MCV 92.4 MCH 30.4 MCHC 32.9 RDW 14.8 Plt Count 96 L MPV 8.9 Absolute Neuts (auto) 13.5 H Neutrophils % 83.7 H Lymphocytes % 12.2 D Monocytes % 3.1 L D Eosinophils % 0.9 D Basophils % 0.1 Nucleated RBC % 0 Sodium 140 140 Potassium 3.5 2.8 L* Chloride 115 H 113 H Carbon Dioxide 16 L 15 L Anion Gap 9 12 BUN 7.3 5.3 L Creatinine 0.8 0.7 Est GFR (CKD-EPI)AfAm 117.10 137.62 Est GFR (CKD-EPI)NonAf 101.04 118.74 Random Glucose 90 79 Calcium 7.6 L 8.0 L Phosphorus 2.5 Magnesium 1.6 L Total Bilirubin 0.4 AST 117 H ALT 55 Alkaline Phosphatase 151 H Total Protein 4.9 L Albumin 1.6 L Active Medications Generic Name Dose Route Start Last Admin Trade Name Freq PRN Reason Stop Dose Admin Heparin Sodium (Porcine) 5,000 unit 03/28/19 14:00 03/29/19 05:41 Heparin - SQ 5,000 unit TID SILVER Administration Norepinephrine Bitartrate 8, 500 mls @ 18.75 mls/hr 03/28/19 12:15 03/29/19 11:20 000 mcg/ Dextrose IV 7.5 mcg/min TITR SILVER 28.12 mls/hr Titration Protocol 5 MCG/MIN Cefazolin Sodium/Dextrose 2 gm in 50 mls @ 200 mls/hr 03/29/19 18:00 Ancef 2 Gm Premixed Ivpb - IVPB Q8H-IV SILVER ASSESSMENT/PLAN: 28 y/o/f with PMHx of nephrolithiasis who presents for evaluation of likely infected L sided stone. Patient s/p IR procedure with drain in place. #Neuro - AAOx3 - IV Tylenol for pain control, Morphine as needed #Urology - Patient s/p IR guided drainage with drain in place - Will need stent removal when medically stable. Per Urology this will be done after her #ID - Started on Cefazolin IV Q8 - discontinue Cefepime IV 2g Q8hr. - Leukocytosis 16.1, improving, afebrile, monitor - ID on board #Cardio - CVP monitoring, may give fluids until CVP of 8-12 reached - Levophed for BP support as needed - Monitor for signs of bradycardia, tachycadia #Pulm - maintain O2 saturation >90% - CXR 03/28 - blunting of right costophrenic angle - Lasix 20mg once - Encourage incentive spirometer #GI - regular diet #Prophylaxis - Heparin - SCDs #FEN - monitor and replete lytes as needed - NPO after midnight, diet today - Hypo K+, Mg, repleted. will monitor #Disposition - continue ICU monitoring Visit type - Emergency Visit Emergency Visit: Yes ED Registration Date: 03/26/19 Care time: The patient presented to the Emergency Department on the above date and was hospitalized for further evaluation of their emergent condition. - New Patient This patient is new to me today: No - Critical Care Critical Care patient: Yes Total Critical Care Time (in minutes): 36 Critical Care Statement: The care of this patient involved high complexity decision making to prevent further life threatening deterioration of the patient 's condition and/or to evaluate & treat vital organ system(s) failure or risk of failure. ATTENDING PHYSICIAN STATEMENT I saw and evaluated the patient. I reviewed the resident's note and discussed the case with the resident. I agree with the resident's findings and plan as documented. SUBJECTIVE: OBJECTIVE: ASSESSMENT AND PLAN:
[2019-03-29] MEDS ORDERED: SODIUM CHLORIDE 0.9% 500 ML INFUS.BAG IV ONE (15:21)
--- NOTE | 2019-03-29 15:59 | PN ---
Progress Note, Physician - Current Medication List Current Medications: Active Medications Heparin Sodium (Porcine) (Heparin -) 5,000 unit SQ TID SILVER Last Admin: 03/29/19 13:18 Dose: 5,000 unit Norepinephrine Bitartrate 8, (000 mcg/ Dextrose) 500 mls @ 18.75 mls/hr IV TITR SILVER; Protocol Last Titration: 03/29/19 13:34 Dose: 10 mcg/min, 37.5 mls/hr Cefazolin Sodium/Dextrose (Ancef 2 Gm Premixed Ivpb -) 2 gm in 50 mls @ 200 mls /hr IVPB Q8H-IV SILVER - Objective Vital Signs: Vital Signs Temperature 98.4 F 03/29/19 14:00 Pulse Rate 101 H 03/29/19 14:00 Respiratory Rate 20 03/29/19 14:00 Blood Pressure 113/82 03/29/19 14:00 O2 Sat by Pulse Oximetry (%) 96 03/29/19 08:00 Constitutional: Yes: No Distress HENT: Yes: Atraumatic Neck: Yes: Supple Cardiovascular: Yes: Regular Rate and Rhythm Respiratory: Yes: CTA Bilaterally Gastrointestinal: Yes: Normal Bowel Sounds Extremities: Yes: WNL Neurological: Yes: Alert, Oriented Labs: CBC, BMP 03/29/19 06:00 03/29/19 06:00 INR, PTT INR 1.04 (0.83-1.09) 03/26/19 21:32 Problem List - Problems (1) Obstructive uropathy Assessment/Plan: s/p nephrostomy tube Code(s): N13.9 - OBSTRUCTIVE AND REFLUX UROPATHY, UNSPECIFIED (2) Assessment/Plan: obgyn consult.. 18 weeks , patient was unaware of it...as per patient Code(s): Z33.1 - STATE, INCIDENTAL Qualifiers: Weeks of gestation: 18 weeks Qualified Code(s): Z3A.18 - 18 weeks gestation of (3) UTI (urinary tract infection) Assessment/Plan: iv abx id consult Code(s): N39.0 - URINARY TRACT INFECTION, SITE NOT SPECIFIED Qualifiers: Urinary tract infection type: acute cystitis Hematuria presence: without hematuria Qualified Code(s): N30.00 - Acute cystitis without hematuria (4) Acute urinary tract infection Code(s): N39.0 - URINARY TRACT INFECTION, SITE NOT SPECIFIED (5) Kidney stone Code(s): N20.0 - CALCULUS OF KIDNEY (6) Sepsis Assessment/Plan: ivf iv abx on pressors Code(s): A41.9 - SEPSIS, UNSPECIFIED ORGANISM
[2019-03-29 17:27] LABS: CALCIUM 7.7 mg/dL (8.5-10.1); CREATININE 0.8 mg/dL (0.55-1.3)
[2019-03-29] MEDS: CEFAZOLIN 2 GM/D5W 2 GM/50 ML ML IVPB SCH (17:34)
[2019-03-29] MEDS: ACETAMINOPHEN 325 MG TABLET (FP) PO PRN (17:39)
[2019-03-29] MEDS ORDERED: CEFEPIME 2 GM in DEXTROSE 5%-WATER 100 ML IVPB SCH (18:00)
[2019-03-29] MEDS: POTASSIUM CHLORIDE 20 MEQ PREMIX IVPB 100 ML IVPB SCH ×3 (18:16→21:09)
[2019-03-30] MEDS: CEFAZOLIN 2 GM/D5W 2 GM/50 ML ML IVPB SCH ×3 (01:03→17:21)
[2019-03-30] MEDS: ACETAMINOPHEN 325 MG TABLET (FP) PO PRN ×3 (04:35→22:01)
[2019-03-30] MEDS: HEPARIN NA (PORCINE) 5,000 UNITS/ML 1ML VIAL SQ SCH ×3 (07:02→21:31)
[2019-03-30 07:20] LABS: HEMATOCRIT 27.1 % (32.4-45.2); HEMOGLOBIN 9.1 GM/dL (10.7-15.3); MCH 30.7 pg (25.7-33.7); MCHC 33.7 g/dl (32.0-36.0); MEAN PLT VOLUME 9.1 fl (7.5-11.1); PLATELET COUNT 105 K/MM3 (134-434); RBC 2.98 M/mm3 (3.60-5.2); WHITE BLOOD COUNT 11.5 K/mm3 (4.0-10.0)
[2019-03-30 07:42] LABS: BLOOD UREA NITROGEN 3.5 mg/dL (7-18); CALCIUM 8.2 mg/dL (8.5-10.1); CREATININE 0.6 mg/dL (0.55-1.3); MAGNESIUM 1.6 mg/dL (1.8-2.4); POTASSIUM 4.1 mmol/L (3.5-5.1)
--- NOTE | 2019-03-30 07:58 | PN ---
Progress Note (short form) - Note Progress Note: Pulm/CCM SUBJECTIVE: Pt seen and examined in the ICU. 24HR events: attempt to wean levo overnight unsuccessful well appearting this am bcxl remain negative OBJECTIVE: Vital Signs Temp 97.8 F 03/29/19 22:00 Pulse 88 03/30/19 04:00 Resp 16 03/30/19 04:00 BP 108/82 03/30/19 04:00 Pulse Ox 96 03/29/19 21:00 Intake & Output 03/29/19 03/29/19 03/30/19 11:59 23:59 11:59 Intake Total 2907 1781.2 Output Total 1150 1200 Balance 1757 581.2 Intake: IV 1907 1281.2 LACTATED RINGERS SOLUTION 0 1,000 ml In 1,000 ml @ 125 mls/hr IV ASDIR SILVER Rx#:[id number] Levophed - 8,000 Mcg In 407 581.2 D5w - 492 ml @ 5 MCG/MIN 18.75 mls/hr IV TITR SILVER Rx#:[id number] Normal Saline - 1,000 ml 1500 @ 125 mls/hr IV ASDIR SILVER Rx#:[id number] SL1 03/26/19 700 IVPB 500 150 Oral 500 350 Output: Urine 1150 1200 Left Nephrostomy 850 800 Void 300 400 Other: Voiding Method Bedpan Toilet # Unmeasured Voids Void 3 1 Bowel Movement Yes No # Bowel Movements 1 1 Gen: awake, alert, no distress, OOB Heart: RRR Lung: decreased breath sounds at the bases Abd: soft, mild TTP diffusely Ext: no edema Neuro: no focal CBC,CMP WBC 11.5 K/mm3 (4.0-10.0) H 03/30/19 06:15 RBC 2.98 M/mm3 (3.60-5.2) L 03/30/19 06:15 Hgb 9.1 GM/dL (10.7-15.3) L 03/30/19 06:15 Hct 27.1 % (32.4-45.2) L 03/30/19 06:15 MCV 91.0 fl (80-96) 03/30/19 06:15 MCH 30.7 pg (25.7-33.7) 03/30/19 06:15 MCHC 33.7 g/dl (32.0-36.0) 03/30/19 06:15 RDW 15.0 % (11.6-15.6) 03/30/19 06:15 Plt Count 105 K/MM3 (134-434) L 03/30/19 06:15 MPV 9.1 fl (7.5-11.1) 03/30/19 06:15 Absolute Neuts (auto) 13.5 K/mm3 (1.5-8.0) H 03/29/19 06:00 Total Counted 100 03/27/19 23:15 Neutrophils % 83.7 % (42.8-82.8) H 03/29/19 06:00 Neutrophils % (Manual) 63.0 % (42.8-82.8) 03/28/19 06:00 Band Neutrophils % 35.0 % 03/28/19 06:00 Lymphocytes % 12.2 % (8-40) D 03/29/19 06:00 Lymphocytes % (Manual) 2.0 % (8-40) L 03/28/19 06:00 Monocytes % 3.1 % (3.8-10.2) L D 03/29/19 06:00 Monocytes % (Manual) 0 % (3.8-10.2) L 03/28/19 06:00 Eosinophils % 0.9 % (0-4.5) D 03/29/19 06:00 Eosinophils % (Manual) 0.0 % (0-4.5) 03/28/19 06:00 Basophils % 0.1 % (0-2.0) 03/29/19 06:00 Basophils % (Manual) 0.0 % (0-2.0) 03/28/19 06:00 Myelocytes % (Man) 0 % (0-2) 03/28/19 06:00 Promyelocytes % (Man) 0 % (0-2) 03/28/19 06:00 Blast Cells % (Manual) 0 % (0-0) 03/28/19 06:00 Nucleated RBC % 0 % (0-0) 03/29/19 06:00 Metamyelocytes 0 % (0-2) 03/28/19 06:00 Differential Comment Man diff performed 03/27/19 20:35 Hypochromia 0 03/28/19 06:00 Toxic Granulation 1+ 11/26/19 20:35 Platelet Estimate Decreased 03/28/19 06:00 Platelet Comment No clumping noted 03/27/19 23:15 Platelet Comment No clotting detected 03/27/19 23:15 Polychromasia 0 03/28/19 06:00 Poikilocytosis 0 03/28/19 06:00 Anisocytosis 0 03/28/19 06:00 Microcytosis 0 03/28/19 06:00 Macrocytosis 0 03/28/19 06:00 Ovalocytes 1+ 03/27/19 20:35 Elizabeth Cells 1+ 03/27/19 20:35 Sodium 137 mmol/L (136-145) 03/30/19 06:15 Potassium 4.1 mmol/L (3.5-5.1) 03/30/19 06:15 Chloride 112 mmol/L (98-107) H 03/30/19 06:15 Carbon Dioxide 19 mmol/L (21-32) L 03/30/19 06:15 Anion Gap 7 MMOL/L (8-16) L 03/30/19 06:15 BUN 3.5 mg/dL (7-18) L 03/30/19 06:15 Creatinine 0.6 mg/dL (0.55-1.3) 03/30/19 06:15 Est GFR (CKD-EPI)AfAm 144.78 03/30/19 06:15 Est GFR (CKD-EPI)NonAf 124.92 03/30/19 06:15 Random Glucose 81 mg/dL (74-106) 03/30/19 06:15 Lactic Acid 0.6 mmol/L (0.4-2.0) 03/26/19 17:15 Calcium 8.2 mg/dL (8.5-10.1) L 03/30/19 06:15 Phosphorus 2.0 mg/dL (2.5-4.9) L 03/30/19 06:15 Magnesium 1.6 mg/dL (1.8-2.4) L 03/30/19 06:15 Total Bilirubin 0.4 mg/dL (0.2-1) 03/29/19 06:00 AST 117 U/L (15-37) H 03/29/19 06:00 ALT 55 U/L (13-61) 03/29/19 06:00 Alkaline Phosphatase 151 U/L (45-117) H 03/29/19 06:00 Troponin I 0.08 ng/ml (0.00-0.05) H 03/30/19 06:15 Total Protein 4.9 g/dl (6.4-8.2) L 03/29/19 06:00 Albumin 1.6 g/dl (3.4-5.0) L 03/29/19 06:00 Beta HCG, Quant > 937974.0 mIU/ml 03/26/19 14:47 Active Medications Acetaminophen (Tylenol -) 650 mg PO Q6H PRN PRN Reason: Fever Or Pain Last Admin: 03/30/19 04:35 Dose: 650 mg Heparin Sodium (Porcine) (Heparin -) 5,000 unit SQ TID SILVER Last Admin: 03/30/19 07:02 Dose: 5,000 unit Norepinephrine Bitartrate 8, (000 mcg/ Dextrose) 500 mls @ 18.75 mls/hr IV TITR SILVER; Protocol Last Admin: 03/29/19 17:53 Dose: 10 mcg/min, 37.5 mls/hr Cefazolin Sodium/Dextrose (Ancef 2 Gm Premixed Ivpb -) 2 gm in 50 mls @ 200 mls /hr IVPB Q8H-IV SILVER Last Admin: 03/30/19 01:03 Dose: 200 mls/hr ASSESSMENT AND PLAN: UTI Nephrolithiasis Bilateral Hydronephrosis s/p left nephrostomy tube placement Septic Shock Volume Overload Anemia Thrombocytopenia Intrauterine - continue antibiotics as per ID - urology f/u - replete lytes - titrate pressors to maintain MAP >65 - O2 to keep SpO2 >90% - DVT prophylaxis - continue ICU monitoring Pt critically ill, remains on vasopressor support 35 min of CCT evaluating patient and formulating plan. Miguel KIDD
[2019-03-30] MEDS ORDERED: NOREPINEPHRINE BITARTRATE 4 MG/4 ML ML IV ONE (08:29)
[2019-03-30] MEDS: NOREPINEPHRINE BITARTRATE 8,000 MCG in DEXTROSE 5%-WATER - 492 ML IV SCH ×2 (08:33→13:54)
--- NOTE | 2019-03-30 13:03 | PN ---
Progress Note, Physician - Current Medication List Current Medications: Active Medications Acetaminophen (Tylenol -) 650 mg PO Q6H PRN PRN Reason: Fever Or Pain Last Admin: 03/30/19 04:35 Dose: 650 mg Heparin Sodium (Porcine) (Heparin -) 5,000 unit SQ TID SILVER Last Admin: 03/30/19 07:02 Dose: 5,000 unit Norepinephrine Bitartrate 8, (000 mcg/ Dextrose) 500 mls @ 18.75 mls/hr IV TITR SILVER; Protocol Last Admin: 03/30/19 08:33 Dose: 10 mcg/min, 37.5 mls/hr Cefazolin Sodium/Dextrose (Ancef 2 Gm Premixed Ivpb -) 2 gm in 50 mls @ 200 mls /hr IVPB Q8H-IV SILVER Last Admin: 03/30/19 09:14 Dose: 200 mls/hr - Objective Vital Signs: Vital Signs Temperature 98.2 F 03/30/19 10:00 Pulse Rate 73 03/30/19 12:00 Respiratory Rate 22 H 03/30/19 12:00 Blood Pressure 108/72 03/30/19 12:00 O2 Sat by Pulse Oximetry (%) 96 03/29/19 21:00 Constitutional: Yes: No Distress HENT: Yes: Atraumatic Neck: Yes: Supple Cardiovascular: Yes: Regular Rate and Rhythm Respiratory: Yes: CTA Bilaterally Gastrointestinal: Yes: Normal Bowel Sounds Extremities: Yes: WNL Neurological: Yes: Alert, Oriented Labs: CBC, BMP 03/30/19 06:15 03/30/19 06:15 INR, PTT INR 1.04 (0.83-1.09) 03/26/19 21:32 Problem List - Problems (1) Obstructive uropathy Assessment/Plan: s/p nephrostomy tube Code(s): N13.9 - OBSTRUCTIVE AND REFLUX UROPATHY, UNSPECIFIED (2) Assessment/Plan: obgyn consult.. 18 weeks , patient was unaware of it...as per patient Code(s): Z33.1 - STATE, INCIDENTAL Qualifiers: Weeks of gestation: 18 weeks Qualified Code(s): Z3A.18 - 18 weeks gestation of (3) UTI (urinary tract infection) Assessment/Plan: iv abx cxs pending Code(s): N39.0 - URINARY TRACT INFECTION, SITE NOT SPECIFIED Qualifiers: Urinary tract infection type: acute cystitis Hematuria presence: without hematuria Qualified Code(s): N30.00 - Acute cystitis without hematuria (4) Acute urinary tract infection Code(s): N39.0 - URINARY TRACT INFECTION, SITE NOT SPECIFIED (5) Kidney stone Code(s): N20.0 - CALCULUS OF KIDNEY (6) Sepsis Code(s): A41.9 - SEPSIS, UNSPECIFIED ORGANISM
[2019-03-30] MEDS ORDERED: ACETAMINOPHEN 325 MG TABLET (FP) ONE (14:01)
--- NOTE | 2019-03-30 17:54 | PN ---
Progress Note, Physician History of Present Illness: AWAKE, ALERT IN BED NO C/O FLANK PAIN OR DYSURIA TEMPS DOWN WBC IMPROVED ON LOW DOSE PRESSORS PLT LOW BC (-) URINE C/S E COLI - Current Medication List Current Medications: Active Medications Acetaminophen (Tylenol -) 650 mg PO Q6H PRN PRN Reason: Fever Or Pain Last Admin: 03/30/19 14:15 Dose: 650 mg Heparin Sodium (Porcine) (Heparin -) 5,000 unit SQ TID SILVER Last Admin: 03/30/19 15:14 Dose: 5,000 unit Norepinephrine Bitartrate 8, (000 mcg/ Dextrose) 500 mls @ 18.75 mls/hr IV TITR SILVER; Protocol Last Titration: 03/30/19 15:00 Dose: 5 mcg/min, 18.75 mls/hr Cefazolin Sodium/Dextrose (Ancef 2 Gm Premixed Ivpb -) 2 gm in 50 mls @ 200 mls /hr IVPB Q8H-IV SILVER Last Admin: 03/30/19 17:21 Dose: 200 mls/hr - Objective Vital Signs: Vital Signs Temperature 98.2 F 03/30/19 14:00 Pulse Rate 115 H 03/30/19 16:00 Respiratory Rate 24 H 03/30/19 16:00 Blood Pressure 105/69 03/30/19 16:00 O2 Sat by Pulse Oximetry (%) 96 03/29/19 21:00 Constitutional: Yes: No Distress, Obese Cardiovascular: Yes: Regular Rate and Rhythm, S1, S2 Respiratory: Yes: CTA Bilaterally Gastrointestinal: Yes: Normal Bowel Sounds, Soft. 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
[2019-03-30] MEDS ORDERED: MEGESTROL ACETATE 400 MG/10 ML UNIT DOSE CUP PO SCH (18:30)
[2019-03-31] MEDS: CEFAZOLIN 2 GM/D5W 2 GM/50 ML ML IVPB SCH ×2 (01:00→09:55)
[2019-03-31] MEDS: HEPARIN NA (PORCINE) 5,000 UNITS/ML 1ML VIAL SQ SCH ×3 (06:26→21:19)
[2019-03-31 07:33] LABS: HEMATOCRIT 26.1 % (32.4-45.2); HEMOGLOBIN 8.7 GM/dL (10.7-15.3); MCH 30.6 pg (25.7-33.7); MCHC 33.5 g/dl (32.0-36.0); MEAN CELL VOLUME 91.2 fl (80-96); MEAN PLT VOLUME 8.6 fl (7.5-11.1); PLATELET COUNT 114 K/MM3 (134-434); RBC 2.86 M/mm3 (3.60-5.2); RDW 15.2 % (11.6-15.6); WHITE BLOOD COUNT 7.9 K/mm3 (4.0-10.0)
[2019-03-31 07:46] LABS: BLOOD UREA NITROGEN 5.4 mg/dL (7-18); CALCIUM 8.1 mg/dL (8.5-10.1); CREATININE 0.6 mg/dL (0.55-1.3); MAGNESIUM 1.7 mg/dL (1.8-2.4); PHOSPHOROUS 2.6 mg/dL (2.5-4.9); POTASSIUM 3.7 mmol/L (3.5-5.1)
--- NOTE | 2019-03-31 08:16 | PN ---
Progress Note (short form) - Note Progress Note: Pulm/CCM SUBJECTIVE: Pt seen and examined in the ICU. 24HR events: -off levo x 12 hrs with stable hemodynamics -ecoli in urine -fever curve down -well appearing Vital Signs Temp 98.5 F 03/31/19 06:00 Pulse 100 H 03/31/19 06:00 Resp 23 H 03/31/19 06:00 BP 90/51 L 03/31/19 06:00 Pulse Ox 96 03/29/19 21:00 Intake & Output 03/30/19 03/30/19 03/31/19 11:59 23:59 11:59 Intake Total 362.5 802 Output Total 600 1150 350 Balance -237.5 -348 -350 Weight 68.492 kg 63.458 kg Intake: IV 362.5 342 Levophed - 8,000 Mcg In 262.5 342 D5w - 492 ml @ 5 MCG/MIN 18.75 mls/hr IV TITR SILVER Rx#:[id number] SL1 03/26/19 100 IVPB 100 Oral 360 Output: Urine 600 1150 350 Left Nephrostomy 600 1150 350 Other: Voiding Method Toilet Toilet # Unmeasured Voids Void 3 2 2 Bowel Movement No No Weight Measurement Method [facility] Gen: awake, alert, no distress, OOB Heart: RRR Lung: decreased breath sounds at the bases Abd: soft, mild tenderness, no rebound or guarding Back: perc nephrophostomy draining slightly blood tinged urine, improved Ext: no edema Neuro: no focal deficits CBC,CMP WBC 7.9 K/mm3 (4.0-10.0) 03/31/19 05:58 RBC 2.86 M/mm3 (3.60-5.2) L 03/31/19 05:58 Hgb 8.7 GM/dL (10.7-15.3) L 03/31/19 05:58 Hct 26.1 % (32.4-45.2) L 03/31/19 05:58 MCV 91.2 fl (80-96) 03/31/19 05:58 MCH 30.6 pg (25.7-33.7) 03/31/19 05:58 MCHC 33.5 g/dl (32.0-36.0) 03/31/19 05:58 RDW 15.2 % (11.6-15.6) 03/31/19 05:58 Plt Count 114 K/MM3 (134-434) L 03/31/19 05:58 MPV 8.6 fl (7.5-11.1) 03/31/19 05:58 Absolute Neuts (auto) 13.5 K/mm3 (1.5-8.0) H 03/29/19 06:00 Total Counted 100 03/27/19 23:15 Neutrophils % 83.7 % (42.8-82.8) H 03/29/19 06:00 Neutrophils % (Manual) 63.0 % (42.8-82.8) 03/28/19 06:00 Band Neutrophils % 35.0 % 03/28/19 06:00 Lymphocytes % 12.2 % (8-40) D 03/29/19 06:00 Lymphocytes % (Manual) 2.0 % (8-40) L 03/28/19 06:00 Monocytes % 3.1 % (3.8-10.2) L D 03/29/19 06:00 Monocytes % (Manual) 0 % (3.8-10.2) L 03/28/19 06:00 Eosinophils % 0.9 % (0-4.5) D 03/29/19 06:00 Eosinophils % (Manual) 0.0 % (0-4.5) 03/28/19 06:00 Basophils % 0.1 % (0-2.0) 03/29/19 06:00 Basophils % (Manual) 0.0 % (0-2.0) 03/28/19 06:00 Myelocytes % (Man) 0 % (0-2) 03/28/19 06:00 Promyelocytes % (Man) 0 % (0-2) 03/28/19 06:00 Blast Cells % (Manual) 0 % (0-0) 03/28/19 06:00 Nucleated RBC % 0 % (0-0) 03/29/19 06:00 Metamyelocytes 0 % (0-2) 03/28/19 06:00 Differential Comment Man diff performed 03/27/19 20:35 Hypochromia 0 03/28/19 06:00 Toxic Granulation 1+ 03/27/19 20:35 Platelet Estimate Decreased 03/28/19 06:00 Platelet Comment No clumping noted 03/27/19 23:15 Platelet Comment No clotting detected 03/27/19 23:15 Polychromasia 0 03/28/19 06:00 Poikilocytosis 0 03/28/19 06:00 Anisocytosis 0 03/28/19 06:00 Microcytosis 0 03/28/19 06:00 Macrocytosis 0 03/28/19 06:00 Ovalocytes 1+ 03/27/19 20:35 Elizabeth Cells 1+ 03/27/19 20:35 Sodium 142 mmol/L (136-145) 03/31/19 05:58 Potassium 3.7 mmol/L (3.5-5.1) 03/31/19 05:58 Chloride 112 mmol/L (98-107) H 03/31/19 05:58 Carbon Dioxide 22 mmol/L (21-32) 03/31/19 05:58 Anion Gap 8 MMOL/L (8-16) 03/31/19 05:58 BUN 5.4 mg/dL (7-18) L 03/31/19 05:58 Creatinine 0.6 mg/dL (0.55-1.3) 03/31/19 05:58 Est GFR (CKD-EPI)AfAm 144.78 03/31/19 05:58 Est GFR (CKD-EPI)NonAf 124.92 03/31/19 05:58 Random Glucose 61 mg/dL (74-106) L 03/31/19 05:58 Lactic Acid 0.6 mmol/L (0.4-2.0) 03/26/19 17:15 Calcium 8.1 mg/dL (8.5-10.1) L 03/31/19 05:58 Phosphorus 2.6 mg/dL (2.5-4.9) 03/31/19 05:58 Magnesium 1.7 mg/dL (1.8-2.4) L 03/31/19 05:58 Total Bilirubin 0.4 mg/dL (0.2-1) 03/29/19 06:00 AST 117 U/L (15-37) H 03/29/19 06:00 ALT 55 U/L (13-61) 03/29/19 06:00 Alkaline Phosphatase 151 U/L (45-117) H 03/29/19 06:00 Troponin I 0.08 ng/ml (0.00-0.05) H 03/30/19 06:15 Total Protein 4.9 g/dl (6.4-8.2) L 03/29/19 06:00 Albumin 1.6 g/dl (3.4-5.0) L 03/29/19 06:00 Beta HCG, Quant > 157138.0 mIU/ml 03/26/19 14:47 Current Medications Acetaminophen (Tylenol -) 650 mg PO Q6H PRN PRN Reason: Fever Or Pain Last Admin: 03/30/19 22:01 Dose: 650 mg Heparin Sodium (Porcine) (Heparin -) 5,000 unit SQ TID SILVER Last Admin: 03/31/19 06:26 Dose: 5,000 unit Norepinephrine Bitartrate 8, (000 mcg/ Dextrose) 500 mls @ 18.75 mls/hr IV TITR SILVER; Protocol Last Titration: 03/30/19 17:00 Dose: 3 mcg/min, 11.25 mls/hr Cefazolin Sodium/Dextrose (Ancef 2 Gm Premixed Ivpb -) 2 gm in 50 mls @ 200 mls /hr IVPB Q8H-IV SILVER Last Admin: 03/31/19 01:00 Dose: 200 mls/hr Megestrol Acetate (Megace Oral Suspension -) 200 mg PO DAILY SILVER ASSESSMENT AND PLAN: UTI Nephrolithiasis Bilateral Hydronephrosis s/p left nephrostomy tube placement Septic Shock Volume Overload Anemia Thrombocytopenia Intrauterine - continue antibiotics as per ID - urology f/u - replete lytes - obtain peripheral IV and DC CVC - O2 to keep SpO2 >90% - DVT prophylaxis - OOB to chair - ok for floor bed Pt critically ill, remains on vasopressor support 35 min of CCT evaluating patient and formulating plan. Miguel KIDD
[2019-03-31] MEDS: ACETAMINOPHEN 325 MG TABLET (FP) PO PRN ×2 (09:08→21:25)
--- NOTE | 2019-03-31 10:32 | PN ---
Progress Note (short form) - Note Progress Note: off levopohed feels well no complaints Vital Signs Period Temp Pulse Resp BP Sys/Macedo Pulse Ox Last 24 Hr 97.5 F-98.5 F 73-122 20-27 82-115/44-83 100 cor-rrr lungs clear abd pcn with clear urine abd soft, nt ext no edema CBC, BMP 03/31/19 05:58 03/31/19 05:58 Microbiology 03/26/19 13:40 Blood - Peripheral Venous Blood Culture - Preliminary NO GROWTH OBTAINED AFTER 96 HOURS, INCUBATION TO CONTINUE FOR 1 DAYS. 03/26/19 13:40 Blood - Peripheral Venous Blood Culture - Preliminary NO GROWTH OBTAINED AFTER 96 HOURS, INCUBATION TO CONTINUE FOR 1 DAYS. 03/27/19 13:15 Urine - Urine Nephrostomy Tube Left Urine Culture - Preliminary Group D Strep Or Entero Coccus Pending Organism 03/26/19 13:00 Urine - Urine Clean Catch Urine Culture - Final Escherichia Coli a/p sepsis secondary to UTI-now off pressors s/p PCN for hydronephrosis IUP 18 weeks switch to ampicillin to cover both nephrostomy and urine pathogens- platelets improving day #5 antibiotics
[2019-03-31] MEDS ORDERED: PT OWN MED DRAWER 7, Y5N ONE ×3 (11:50→15:40)
[2019-03-31] MEDS: AMPICILLIN - 2 GM in SODIUM CHLORIDE 100 ML IVPB SCH ×3 (12:40→21:19)
--- NOTE | 2019-03-31 15:00 | PN ---
Progress Note, Physician - Current Medication List Current Medications: Active Medications Acetaminophen (Tylenol -) 650 mg PO Q6H PRN PRN Reason: Fever Or Pain Last Admin: 03/31/19 09:08 Dose: 650 mg Heparin Sodium (Porcine) (Heparin -) 5,000 unit SQ TID SILVER Last Admin: 03/31/19 06:26 Dose: 5,000 unit Ampicillin Sodium 2 gm/ Sodium (Chloride) 100 mls @ 200 mls/hr IVPB Q6H-IV SILVER ; Protocol Last Admin: 03/31/19 12:40 Dose: 200 mls/hr Megestrol Acetate (Megace Oral Suspension -) 200 mg PO DAILY SILVER - Objective Vital Signs: Vital Signs Temperature 98.1 F 03/31/19 10:00 Pulse Rate 70 03/31/19 14:00 Respiratory Rate 25 H 03/31/19 14:00 Blood Pressure 104/61 03/31/19 14:00 O2 Sat by Pulse Oximetry (%) 100 03/31/19 08:59 Constitutional: Yes: No Distress HENT: Yes: Atraumatic Neck: Yes: Supple Cardiovascular: Yes: Regular Rate and Rhythm Respiratory: Yes: CTA Bilaterally Gastrointestinal: Yes: Normal Bowel Sounds Extremities: Yes: WNL Labs: CBC, BMP 03/31/19 05:58 03/31/19 05:58 INR, PTT INR 1.04 (0.83-1.09) 03/26/19 21:32 Problem List - Problems (1) Obstructive uropathy Assessment/Plan: s/p nephrostomy tube Code(s): N13.9 - OBSTRUCTIVE AND REFLUX UROPATHY, UNSPECIFIED (2) Assessment/Plan: obgyn consult.. 18 weeks , patient was unaware of it...as per patient Code(s): Z33.1 - STATE, INCIDENTAL Qualifiers: Weeks of gestation: 18 weeks Qualified Code(s): Z3A.18 - 18 weeks gestation of (3) UTI (urinary tract infection) Assessment/Plan: iv abx cxs pending Code(s): N39.0 - URINARY TRACT INFECTION, SITE NOT SPECIFIED Qualifiers: Urinary tract infection type: acute cystitis Hematuria presence: without hematuria Qualified Code(s): N30.00 - Acute cystitis without hematuria (4) Acute urinary tract infection Code(s): N39.0 - URINARY TRACT INFECTION, SITE NOT SPECIFIED (5) Kidney stone Assessment/Plan: will be seen by urology in am OR? Code(s): N20.0 - CALCULUS OF KIDNEY (6) Sepsis Assessment/Plan: ivf off of pressors Code(s): A41.9 - SEPSIS, UNSPECIFIED ORGANISM
[2019-04-01] MEDS: AMPICILLIN - 2 GM in SODIUM CHLORIDE 100 ML IVPB SCH ×3 (02:20→12:21)
[2019-04-01] MEDS: HEPARIN NA (PORCINE) 5,000 UNITS/ML 1ML VIAL SQ SCH (07:05)
--- NOTE | 2019-04-01 07:38 | PN ---
Progress Note (short form) - Note Progress Note: Pulm/CCM SUBJECTIVE: Pt seen and examined in the ICU. 24HR events: -remains off levo, awaiting floor bed Vital Signs Temp 97.9 F 03/31/19 22:00 Pulse 90 04/01/19 04:00 Resp 18 04/01/19 04:00 BP 81/44 L 04/01/19 04:00 Pulse Ox 100 03/31/19 21:00 Intake & Output 03/31/19 03/31/19 04/01/19 11:59 23:59 11:59 Intake Total 750 Output Total 350 700 Balance -350 50 Weight 63.458 kg Intake: IVPB 350 Oral 400 Output: Urine 350 700 Left Nephrostomy 350 700 Other: Voiding Method Toilet Toilet # Unmeasured Voids Void 2 1 Bowel Movement No Weight Measurement Method Built in Bedscale Gen: awake, alert, no distress, OOB Heart: RRR Lung: decreased breath sounds at the bases Abd: soft, mild tenderness, no rebound or guarding Back: perc nephrophostomy draining clear urine, good outpu Ext: no edema Neuro: no focal deficits CBC,CMP WBC 7.9 K/mm3 (4.0-10.0) 03/31/19 05:58 RBC 2.86 M/mm3 (3.60-5.2) L 03/31/19 05:58 Hgb 8.7 GM/dL (10.7-15.3) L 03/31/19 05:58 Hct 26.1 % (32.4-45.2) L 03/31/19 05:58 MCV 91.2 fl (80-96) 03/31/19 05:58 MCH 30.6 pg (25.7-33.7) 03/31/19 05:58 MCHC 33.5 g/dl (32.0-36.0) 03/31/19 05:58 RDW 15.2 % (11.6-15.6) 03/31/19 05:58 Plt Count 114 K/MM3 (134-434) L 03/31/19 05:58 MPV 8.6 fl (7.5-11.1) 03/31/19 05:58 Absolute Neuts (auto) 13.5 K/mm3 (1.5-8.0) H 03/29/19 06:00 Total Counted 100 03/27/19 23:15 Neutrophils % 83.7 % (42.8-82.8) H 03/29/19 06:00 Neutrophils % (Manual) 63.0 % (42.8-82.8) 03/28/19 06:00 Band Neutrophils % 35.0 % 03/28/19 06:00 Lymphocytes % 12.2 % (8-40) D 03/29/19 06:00 Lymphocytes % (Manual) 2.0 % (8-40) L 03/28/19 06:00 Monocytes % 3.1 % (3.8-10.2) L D 03/29/19 06:00 Monocytes % (Manual) 0 % (3.8-10.2) L 03/28/19 06:00 Eosinophils % 0.9 % (0-4.5) D 03/29/19 06:00 Eosinophils % (Manual) 0.0 % (0-4.5) 03/28/19 06:00 Basophils % 0.1 % (0-2.0) 03/29/19 06:00 Basophils % (Manual) 0.0 % (0-2.0) 03/28/19 06:00 Myelocytes % (Man) 0 % (0-2) 03/28/19 06:00 Promyelocytes % (Man) 0 % (0-2) 03/28/19 06:00 Blast Cells % (Manual) 0 % (0-0) 03/28/19 06:00 Nucleated RBC % 0 % (0-0) 03/29/19 06:00 Metamyelocytes 0 % (0-2) 03/28/19 06:00 Differential Comment Man diff performed 03/27/19 20:35 Hypochromia 0 03/28/19 06:00 Toxic Granulation 1+ 03/27/19 20:35 Platelet Estimate Decreased 03/28/19 06:00 Platelet Comment No clumping noted 03/27/19 23:15 Platelet Comment No clotting detected 03/27/19 23:15 Polychromasia 0 03/28/19 06:00 Poikilocytosis 0 03/28/19 06:00 Anisocytosis 0 03/28/19 06:00 Microcytosis 0 03/28/19 06:00 Macrocytosis 0 03/28/19 06:00 Ovalocytes 1+ 03/27/19 20:35 Elizabeth Cells 1+ 03/27/19 20:35 Sodium 142 mmol/L (136-145) 03/31/19 05:58 Potassium 3.7 mmol/L (3.5-5.1) 03/31/19 05:58 Chloride 112 mmol/L (98-107) H 03/31/19 05:58 Carbon Dioxide 22 mmol/L (21-32) 03/31/19 05:58 Anion Gap 8 MMOL/L (8-16) 03/31/19 05:58 BUN 5.4 mg/dL (7-18) L 03/31/19 05:58 Creatinine 0.6 mg/dL (0.55-1.3) 03/31/19 05:58 Est GFR (CKD-EPI)AfAm 144.78 03/31/19 05:58 Est GFR (CKD-EPI)NonAf 124.92 03/31/19 05:58 Random Glucose 61 mg/dL (74-106) L 03/31/19 05:58 Lactic Acid 0.6 mmol/L (0.4-2.0) 03/26/19 17:15 Calcium 8.1 mg/dL (8.5-10.1) L 03/31/19 05:58 Phosphorus 2.6 mg/dL (2.5-4.9) 03/31/19 05:58 Magnesium 1.7 mg/dL (1.8-2.4) L 03/31/19 05:58 Total Bilirubin 0.4 mg/dL (0.2-1) 03/29/19 06:00 AST 117 U/L (15-37) H 03/29/19 06:00 ALT 55 U/L (13-61) 03/29/19 06:00 Alkaline Phosphatase 151 U/L (45-117) H 03/29/19 06:00 Troponin I 0.08 ng/ml (0.00-0.05) H 03/30/19 06:15 Total Protein 4.9 g/dl (6.4-8.2) L 03/29/19 06:00 Albumin 1.6 g/dl (3.4-5.0) L 03/29/19 06:00 Beta HCG, Quant > 638717.0 mIU/ml 03/26/19 14:47 Microbiology 03/26/19 13:40 Blood - Peripheral Venous Blood Culture - Final NO GROWTH AFTER 5 DAYS INCUBATION 03/26/19 13:40 Blood - Peripheral Venous Blood Culture - Final NO GROWTH AFTER 5 DAYS INCUBATION 03/27/19 13:15 Urine - Urine Nephrostomy Tube Left Urine Culture - Preliminary Group D Strep Or Entero Coccus Lactose Fermenting Neg Bacilli 03/26/19 13:00 Urine - Urine Clean Catch Urine Culture - Final Escherichia Coli Active Medications Acetaminophen (Tylenol -) 650 mg PO Q6H PRN PRN Reason: Fever Or Pain Last Admin: 03/31/19 21:25 Dose: 650 mg Heparin Sodium (Porcine) (Heparin -) 5,000 unit SQ TID SILVER Last Admin: 04/01/19 07:05 Dose: 5,000 unit Ampicillin Sodium 2 gm/ Sodium (Chloride) 100 mls @ 200 mls/hr IVPB Q6H-IV SILVER ; Protocol Last Admin: 04/01/19 02:20 Dose: 200 mls/hr Megestrol Acetate (Megace Oral Suspension -) 200 mg PO DAILY [facility] ASSESSMENT AND PLAN: UTI Nephrolithiasis Bilateral Hydronephrosis s/p left nephrostomy tube placement Ecoli sepsis Septic Shock, now resolved Volume Overload Anemia Thrombocytopenia Intrauterine - continue antibiotics as per ID - urology and gynf/u - replete lytes - O2 to keep SpO2 >90% - DVT prophylaxis - OOB to chair - transfer to floor vs d/c home [place] ACNP [id number]
[2019-04-01] MEDS ORDERED: PT OWN MED DRAWER 7, Y5N ONE (09:17)
[2019-04-01 10:59] LABS: HEMATOCRIT 28.2 % (32.4-45.2); HEMOGLOBIN 9.5 GM/dL (10.7-15.3); MCH 30.7 pg (25.7-33.7); MCHC 33.8 g/dl (32.0-36.0); MEAN CELL VOLUME 90.7 fl (80-96); MEAN PLT VOLUME 8.2 fl (7.5-11.1); PLATELET COUNT 141 K/MM3 (134-434); RBC 3.11 M/mm3 (3.60-5.2); RDW 14.5 % (11.6-15.6); WHITE BLOOD COUNT 8.2 K/mm3 (4.0-10.0)
--- NOTE | 2019-04-01 11:22 | PN ---
Progress Note (short form) - Note Progress Note: no complaints no abdominal pain Vital Signs Period Temp Pulse Resp BP Sys/Macedo Pulse Ox Last 24 Hr 97.9 F-98.6 F 70-110 17-25 70-104/42-65 100-100 cor-rrr lungs clear abd soft,nt ext no edema +PCN clear urine CBC, BMP 04/01/19 10:45 03/31/19 05:58 Microbiology 03/26/19 13:40 Blood - Peripheral Venous Blood Culture - Final NO GROWTH AFTER 5 DAYS INCUBATION 03/26/19 13:40 Blood - Peripheral Venous Blood Culture - Final NO GROWTH AFTER 5 DAYS INCUBATION 03/27/19 13:15 Urine - Urine Nephrostomy Tube Left Urine Culture - Preliminary Group D Strep Or Entero Coccus Lactose Fermenting Neg Bacilli 03/26/19 13:00 Urine - Urine Clean Catch Urine Culture - Final Escherichia Coli a/p sepsis secondary to UTI-now off pressors s/p PCN for hydronephrosis IUP 18 weeks continue ampicillin still awaiting results from the PCN culture! overall improved day #6 antibiotics
[2019-04-01 13:19] VITALS: BP 103/60; PULSE 99; TEMP 98.2
--- NOTE | 2019-04-01 14:45 | DS ---
Physical Examination Vital Signs: Vital Signs Temperature 98.2 F 04/01/19 10:00 Pulse Rate 99 H 04/01/19 10:00 Respiratory Rate 17 04/01/19 10:00 Blood Pressure 103/60 04/01/19 10:00 O2 Sat by Pulse Oximetry (%) 100 04/01/19 09:00 Labs: CBC, BMP 04/01/19 10:45 03/31/19 05:58 Discharge Summary Problems reviewed: Yes Reason For Visit: ,PYELONEPHRITIS,OBSTRUCTIVE UROPATHY Condition: Guarded - Instructions Disposition: AGAINST MEDICAL ADVICE - Home Medications Comprehensive Discharge Medication List: Ambulatory Orders Mv-Mn/Iron/FA/Herbal/Digestive [ One Tablet] 1 each PO DAILY 12/02/14 Ibuprofen [Motrin -] 600 mg PO TID PRN 03/28/19 AMA
== END 2019-04-01 13:25 | disposition left against medical advice (07) | DRG 951 ==
LOC: JERFT 11:28 → JER 11:28 → JERBED 19:21 → J5S 03-27 15:55 → JERBED 03-27 16:24 → JICU 03-27 23:05
PROVIDERS: ADMIT Internal Medicine; ATTEND Internal Medicine
PROC: 0T9130Z Drainage of Left Kidney with Drainage Device, Percutaneous Approach (ICD-10-PCS; principal; 2019-03-27)
PROC: 05HM33Z Insertion of Infusion Device into Right Internal Jugular Vein, Percutaneous Approach (ICD-10-PCS; 2019-03-28)
DX: O98.812 Other maternal infectious and parasitic diseases complicating pregnancy, second trimester (principal); O23.02 Infections of kidney in pregnancy, second trimester; A41.51 Sepsis due to Escherichia coli [E. coli]; Z3A.18 18 weeks gestation of pregnancy; O26.892 Other specified pregnancy related conditions, second trimester; E87.70 Fluid overload, unspecified; N13.6 Pyonephrosis; R65.20 Severe sepsis without septic shock; D69.6 Thrombocytopenia, unspecified; E87.6 Hypokalemia; E83.42 Hypomagnesemia; E83.39 Other disorders of phosphorus metabolism
CPT/HCPCS: 36415; 50432; 71045-TC-FY; 76775-TC; 76815-TC; 80048; 80053; 81003; 83605; 83735; 84100; 84484; 84702; 84703; 85025; 85027; 85610; 85730; 86850; 86900; 86901; 87040; 87086; 87186; 87899; 93005; 93010; 94010; 99284-25; A4358; C1729; C1769; J0131; J1644; J7030

== ENCOUNTER 2019-04-21 08:02 | Emergency (ER) | payer SELFPAY ==
[2019-04-21 08:25] VITALS: TEMP 98.3; BMI 27.8
[2019-04-21] MEDS ORDERED: ACETAMINOPHEN 1000 MG/100 ML VIAL (NON FORMULARY) IVPB ONE (08:44)
[2019-04-21] MEDS ORDERED: ACETAMINOPHEN INJECTION 100 ML IVPB ONE (08:51)
--- NOTE | 2019-04-21 08:58 | PDOC ---
History of Present Illness - General Chief Complaint: Wound Stated Complaint: WOUND CARE Time Seen by Provider: 04/21/19 08:28 - History of Present Illness Initial Comments: 04/21/19 09:39 28 yo F with pmhx of nephrolithiasis, hydronephrosis, L kidney stent, and (20 wks gestation) presents to the ED c/o wound pain. Pt had a catheter placed in L kidney on 03/26/19 due to an episode of nephrolithiasis and concurrent hydronephrosis. Catheter was placed due to 20 week . Pt woke up this morning with a sharp, stabbing pain that is 7-8/10 in severity. Pt noted watery fluid leakage from wound site; denies purulent or bloody discharge. Pt denies fever or chills, n/v/d, dizziness or lightheadedness, dysuria, R flank pain, or abdominal pain. FDLMP was 02/23/19. Relevant PMHx is mentioned above. Past medications include ppx amoxicillin x 1 week s/p catheter placement. Past History - Past Medical History Allergies/Adverse Reactions: Allergies Allergy/AdvReac Type Severity Reaction Status Date / Time No Known Allergies Allergy Verified 04/21/19 08:21 Home Medications: Ambulatory Orders Lidocaine 5% Patch [Lidoderm Patch -] 1 patch TP DAILY #7 patch 04/21/19 Sulfamethoxazole/Trimethoprim [Bactrim Ds -] 1 tab PO BID #14 tablet 04/21/19 Anemia: No Asthma: No Cancer: No Cardiac Disorders: No COPD: No Diabetes: No Disorders: Yes (renal stones with stents) HTN: No Kidney Stones: Yes (with stent) Seizures: No Thyroid Disease: No - Surgical History Abdominal Surgery: No Appendectomy: No Cardiac Surgery: No - Reproductive History Cervical CA: No Dysfunctional Uterine Bleeding: No Ectopic : No Endometrial CA: No Polycystic Ovaries: No Therapeutic (s) & number: No Tubal Ligation: No - Immunization History Immunization Up to Date: No - Psycho Social/Smoking Cessation Hx Smoking Status: Yes Smoking History: Never smoked Have you smoked in the past 12 months: No Number of Cigarettes Smoked Daily: 1 Hx Alcohol Use: No Drug/Substance Use Hx: No Substance Use Type: None Hx Substance Use Treatment: No *Physical Exam - Vital Signs Last Vital Signs Temp Pulse Resp BP Pulse Ox 98.3 F 123 H 16 102/52 L 04/21/19 08:15 04/21/19 08:15 04/21/19 08:15 04/21/19 08:15 ED Treatment Course - LABORATORY CBC & Chemistry Diagram: 04/21/19 08:59 04/21/19 08:59 Discharge - Discharge Information Problems reviewed: Yes Clinical Impression/Diagnosis: Left flank pain Condition: Unchanged/Unknown Disposition: AGAINST MEDICAL ADVICE - Admission No - Additional Discharge Information Prescriptions: Lidocaine 5% Patch [Lidoderm Patch -] 1 patch TP DAILY #7 patch Sulfamethoxazole/Trimethoprim [Bactrim Ds -] 1 tab PO BID #14 tablet - Follow up/Referral Referrals: Hamilton Hopkins S.A. [Other Staff,non-medical] - - Patient Discharge Instructions Patient Printed Discharge Instructions: DI for Nephrostomy Additional Instructions: You're choosing to leave against medical advice. Please follow up at the urologist office on TuesdayApril 23 at 9am. Come back to the emergency department IMMEDIATELY or call 911 for any new, worsening or concerning symptoms such as fever, chill, pain, trouble breathing, chest pain, fatigue, malaise. - Post Discharge Activity
[2019-04-21] MEDS ORDERED: LIDOCAINE 5% TOPICAL PATCH TP ONE (09:24)
[2019-04-21] MEDS ORDERED: LIDOCAINE 5% TOPICAL PATCH ONE (09:28)
[2019-04-21 09:36] LABS: BASO % 0.3 % (0-2.0); EOS % 1.9 % (0-4.5); HEMATOCRIT 30.2 % (32.4-45.2); LYMPH % 17.9 % (8-40); MCH 30.1 pg (25.7-33.7); MCHC 33.1 g/dl (32.0-36.0); MEAN CELL VOLUME 91.2 fl (80-96); MEAN PLT VOLUME 8.6 fl (7.5-11.1); MONO % 3.8 % (3.8-10.2); NEUT % 76.1 % (42.8-82.8); PLATELET COUNT 273 K/MM3 (134-434); RBC 3.31 M/mm3 (3.60-5.2); RDW 14.6 % (11.6-15.6); WHITE BLOOD COUNT 14.4 K/mm3 (4.0-10.0)
[2019-04-21 09:44] LABS: EPI CELLS 2.7 /HPF (0-5/HPF); HYALINE CASTS 12 /lpf (0-8); PH,URINE 6.5 (5.0-8.0); URINE APPEARANCE TURBID; URINE BACTERIA 1304.2 /hpf (NEGATIVE); URINE BILIRUBIN NEGATIVE (NEGATIVE); URINE COLOR ORANGE; URINE GLUCOSE (UA) NEGATIVE (NEGATIVE); URINE KETONE NEGATIVE (NEGATIVE); URINE LEUK ESTERASE 3+ (NEGATIVE); URINE NITRITE NEGATIVE (NEGATIVE); URINE PROTEIN 3+ (NEGATIVE); URINE RBC 249 /hpf (0-4); URINE WBC 154 /hpf (0-5)
[2019-04-21] MEDS ORDERED: SULFAMETHOXAZOLE/TRIMETHOPRIM 800MG/160MG D.S. TABLET PO ONE (10:02)
[2019-04-21] MEDS ORDERED: SULFAMETHOXAZOLE/TRIMETHOPRIM 800MG/160MG D.S. TABLET ONE (10:10)
[2019-04-21 10:17] VITALS: BP 110/58; PULSE 97
[2019-04-21 10:42] LABS: ALBUMIN 2.4 g/dl (3.4-5.0); BILIRUBIN,TOTAL 0.2 mg/dL (0.2-1); BLOOD UREA NITROGEN 6.6 mg/dL (7-18); CALCIUM 8.2 mg/dL (8.5-10.1); CREATININE 0.5 mg/dL (0.55-1.3); POTASSIUM 3.2 mmol/L (3.5-5.1); TOT PROT 6.1 g/dl (6.4-8.2)
--- NOTE | 2019-04-21 11:35 | PDOC ---
Documentation entered by Sharon Salinas SCRIBE, acting as scribe for Rekha Burgess MD. Rekha Burgess MD: This documentation has been prepared by the Rita aviles Adrianna, SCRIBE, under my direction and personally reviewed by me in its entirety. I confirm that the documentation accurately reflects all work, treatment, procedures, and medical decision making performed by me. Attending Attestation - Resident Resident Name: Jose AJonny - [facility] HPI: The patient is a 28 year old female (currently at 20 weeks gestation), with a significant PMH of nephrolithiasis (s/p left ureter stenting) and hydronephrosis , who presents to the ED for evaluation of catheter pain that began this morning. Patient had a catheter placed in the left kidney 3.5 weeks ago for an episode of nephrolithiasis and hydronephrosis, in combination to patient being . Patient developed pain upon wake up at the catheter site that is sharp , stabbing, and an 8/10 in nature. She reports associated drainage from the catheter site, that she describes as a watery fluid. Denies any blood or purulence from the catheter site. Denies fever, chills, nausea, vomit, diarrhea, constipation, dysuria, hematuria , dizziness, lightheadedness. Allergies: NKA, NKDA Surgical History: Left ureter stenting Social History: Denies EtOH, tobacco, or illicit drug use - Physicial Exam PE: GENERAL: The patient is in no acute distress. ENT: Ears normal, nares patent, oropharynx clear without exudates. Moist mucous membranes. NECK: Normal range of motion, supple, no nuchal rigidity LUNGS: Breath sounds equal, clear to auscultation bilaterally. No wheezes, and no crackles. HEART: Regular rate and rhythm, normal S1 and S2 without murmur, rub or gallop. ABDOMEN: Soft, nontender, normoactive bowel sounds. No guarding, no rebound. No masses palpable. EXTREMITIES: Normal range of motion, no edema. NEUROLOGICAL: Cranial nerves II through XII grossly intact. Normal speech. No focal neurological deficits. SKIN: Warm, Dry, normal turgor, no rashes or lesions noted.
[2019-04-21] MEDS ORDERED: LIDOCAINE PATCH REMOVAL MC SCH (22:00)
== END 2019-04-21 10:17 | disposition left against medical advice (07) ==
LOC: JER 08:02
CPT/HCPCS: 36415; 80053; 81003; 85025; 87086; 87186; 99282-25; J0131

== ENCOUNTER 2022-08-05 12:11 | Inpatient (IN) | payer OTHER ==
[2022-08-05 12:14] VITALS: BMI 24.2
[2022-08-05] MEDS ORDERED: ACETAMINOPHEN 325 MG TABLET (FP) PO ONE (12:31)
[2022-08-05] MEDS ORDERED: ACETAMINOPHEN 500 MG TABLET (FP) PO ONE (12:33)
[2022-08-05] MEDS ORDERED: ACETAMINOPHEN 500 MG TABLET (FP) ONE (12:51)
[2022-08-05] MEDS ORDERED: SODIUM CHLORIDE 0.9% 500 ML INFUS.BAG IV ONE (13:27)
[2022-08-05] MEDS ORDERED: ONDANSETRON 4 MG/2 ML VIAL IVPUSH ONE (13:28)
[2022-08-05] MEDS ORDERED: ONDANSETRON 4 MG/2 ML VIAL ONE (13:32)
[2022-08-05] MEDS ORDERED: METOCLOPRAMIDE HCL INJECTION 10 MG/2 ML VIAL IVPB ONE (13:33)
[2022-08-05] MEDS ORDERED: METOCLOPRAMIDE HCL INJECTION 10 MG/2 ML VIAL ONE (13:37)
[2022-08-05 14:29] LABS: BASO % 0.2 % (0-2.0); HEMATOCRIT 39.6 % (32.4-45.2); HEMOGLOBIN 13.4 GM/dL (10.7-15.3); LYMPH % 5.1 % (8-40); MCHC 33.9 g/dl (32.0-36.0); MEAN CELL VOLUME 91.3 fl (80-96); MEAN PLT VOLUME 8.8 fl (7.5-11.1); MONO % 6.2 % (3.8-10.2); NEUT % 88.5 % (42.8-82.8); PLATELET COUNT 262 10^3/uL (134-434); RBC 4.34 M/mm3 (3.60-5.2); RDW 13.5 % (11.6-15.6); WHITE BLOOD COUNT 19.4 K/mm3 (4.0-10.0)
[2022-08-05 14:40] LABS: CALCIUM 9.3 mg/dL (8.5-10.1)
[2022-08-05 14:41] LABS: BLOOD UREA NITROGEN 9.1 mg/dL (7-18)
[2022-08-05 14:44] LABS: CREATININE 0.8 mg/dL (0.55-1.3)
[2022-08-05 14:46] LABS: BILIRUBIN,TOTAL 0.7 mg/dL (0.2-1); TOT PROT 7.4 g/dl (6.4-8.2)
[2022-08-05 14:47] LABS: EPI CELLS 20 /uL (0-25.1); HYALINE CASTS 0 /uL (0-3.1); URINE APPEARANCE CLOUDY; URINE BACTERIA 7281 /uL (0-1359); URINE BILIRUBIN NEGATIVE (NEGATIVE); URINE COLOR YELLOW; URINE GLUCOSE (UA) NEGATIVE (NEGATIVE); URINE KETONE TRACE (NEGATIVE); URINE LEUK ESTERASE 3+ (NEGATIVE); URINE NITRITE POSITIVE (NEGATIVE); URINE PROTEIN 2+ (NEGATIVE); URINE RBC 113 /uL (0-23.9); URINE WBC 1057 /uL (0-25.8)
[2022-08-05] MEDS ORDERED: PIPERACILLIN/TAZOB 4.5 GM 4.5 GM in DEXTROSE 5%-WATER 100 ML IVPB ONE (15:26)
[2022-08-05] MEDS ORDERED: morphine CARPU-JECT 4 MG/1 ML DISP.SYRIN IVPUSH ONE (15:29)
[2022-08-05] MEDS ORDERED: morphine SULFATE 4 MG/ML VIAL ONE (15:42)
[2022-08-05] MEDS ORDERED: PIPERACILLIN/TAZOB 4.5 GM 4.5 GM/100 ML BAG IVPB ONE (15:43)
[2022-08-05] MEDS ORDERED: morphine CARPU-JECT 2 MG/1 ML DISP.SYRIN IVPUSH PRN (16:50)
[2022-08-05] MEDS ORDERED: SODIUM CHLORIDE 1,000 ML IV STA (16:50)
[2022-08-05] MEDS ORDERED: ONDANSETRON 4 MG/2 ML VIAL IVPUSH PRN (16:52)
[2022-08-05] MEDS ORDERED: SODIUM CHLORIDE 1,000 ML IV SCH (17:00)
[2022-08-05] MEDS ORDERED: ACETAMINOPHEN 1000 MG/100 ML BAG IVPB ONE (23:33)
[2022-08-05] MEDS ORDERED: PIPERACILLIN/TAZOB 3.375 GM 3.375 GM/50 ML BAG IVPB ONE (23:47)
[2022-08-06] MEDS ORDERED: PIPERACILLIN/TAZOB 3.375 GM 3.375 GM in DEXTROSE 5%-WATER - 50 ML IVPB SCH
[2022-08-06] MEDS: LACTATED RINGERS SOLUTION 1,000 ML/1,000 ML INFUS.BAG IV SCH ×2 (00:15→08:54)
[2022-08-06 06:39] LABS: BASO % 0.2 % (0-2.0); EOS % 0.3 % (0-4.5); HEMATOCRIT 32.1 % (32.4-45.2); HEMOGLOBIN 10.9 GM/dL (10.7-15.3); LYMPH % 16.5 % (8-40); MCH 30.8 pg (25.7-33.7); MCHC 33.9 g/dl (32.0-36.0); MEAN CELL VOLUME 90.9 fl (80-96); MEAN PLT VOLUME 8.8 fl (7.5-11.1); MONO % 8.3 % (3.8-10.2); NEUT % 74.7 % (42.8-82.8); PLATELET COUNT 194 10^3/uL (134-434); RBC 3.54 M/mm3 (3.60-5.2); RDW 13.4 % (11.6-15.6); WHITE BLOOD COUNT 12.8 K/mm3 (4.0-10.0)
[2022-08-06 06:47] LABS: INR 1.14 (0.83-1.09); PROTHROMBIN TIME (PATIENT) 13.2 SEC (9.7-13.0)
[2022-08-06 07:05] LABS: BLOOD UREA NITROGEN 8.2 mg/dL (7-18); MAGNESIUM 1.5 mg/dL (1.8-2.4)
[2022-08-06 07:08] LABS: CREATININE 0.6 mg/dL (0.55-1.3); PHOSPHOROUS 2.5 mg/dL (2.5-4.9)
[2022-08-06 07:10] LABS: BILIRUBIN,TOTAL 0.6 mg/dL (0.2-1); TOT PROT 5.5 g/dl (6.4-8.2)
[2022-08-06 07:12] LABS: ALBUMIN 2.2 g/dl (3.4-5.0)
[2022-08-06] MEDS: PIPERACILLIN/TAZOB 3.375 GM 3.375 GM in DEXTROSE 5%-WATER - 50 ML IVPB SCH (08:58)
[2022-08-06] MEDS ORDERED: MIDAZOLAM HCL 2 MG/2 ML SINGLE DOSE VIAL ONE ×3 (09:48→11:25)
[2022-08-06] MEDS ORDERED: PROPOFOL 20 ML ONE ×3 (09:48→11:26)
[2022-08-06] MEDS ORDERED: SUCCINYLCHOLINE CHLORIDE 200 MG/10 ML SYRINGE ONE (09:56)
[2022-08-06] MEDS ORDERED: CEFTRIAXONE 1 GM in DEXTROSE 5%-WATER - 50 ML IVPB SCH (10:00)
[2022-08-06] MEDS ORDERED: ONDANSETRON 4 MG/2 ML VIAL ONE ×2 (10:05→11:40)
[2022-08-06] MEDS ORDERED: ceFAZolin SODIUM 1 GM VIAL IVPB ONE (10:05)
[2022-08-06] MEDS ORDERED: SODIUM CHLORIDE 1,000 ML IV SCH (11:16)
[2022-08-06] MEDS ORDERED: LACTATED RINGERS SOLUTION 1,000 ML/1,000 ML INFUS.BAG IV SCH (11:16)
[2022-08-06] MEDS ORDERED: ONDANSETRON 4 MG/2 ML VIAL IVPUSH PRN (11:16)
[2022-08-06] MEDS ORDERED: SEVOFLURANE 250 ML BTL ONE (11:30)
[2022-08-06] MEDS ORDERED: ACETAMINOPHEN INJECTION 100 ML IVPB ONE (11:34)
[2022-08-06] MEDS ORDERED: DEXAMETHASONE SOD PHOSPHATE 4 MG/1 ML VIAL ONE (11:40)
[2022-08-06] MEDS ORDERED: ACETAMINOPHEN 1000 MG/100 ML BAG IVPB ONE (12:07)
[2022-08-06] MEDS ORDERED: VANCOMYCIN/WATER FOR INJ (PEG) 1,000 MG/200 ML BAG IVPB SCH (14:00)
[2022-08-06 15:59] VITALS: BP 104/60
[2022-08-06 16:00] VITALS: RESP 14; TEMP 97.8
[2022-08-06 16:01] VITALS: PULSE 62
[2022-08-06] MEDS ORDERED: TAMSULOSIN HCL 0.4 MG CAP PO SCH ×2 (18:19)
== END 2022-08-06 15:33 | disposition left against medical advice (07) | DRG 443 ==
LOC: JER 12:11 → JERBED 15:35
PROVIDERS: ADMIT Internal Medicine
PROC: 0T778DZ Dilation of Left Ureter with Intraluminal Device, Via Natural or Artificial Opening Endoscopic (ICD-10-PCS; principal; 2022-08-06 10:30)
PROC: 0TP98DZ Removal of Intraluminal Device from Ureter, Via Natural or Artificial Opening Endoscopic (ICD-10-PCS; 2022-08-06 10:30)
DX: T83.89XA Other specified complication of genitourinary prosthetic devices, implants and grafts, initial encounter (principal); R21 Rash and other nonspecific skin eruption; N13.6 Pyonephrosis; R05.9 Cough, unspecified; Y84.6 Urinary catheterization as the cause of abnormal reaction of the patient, or of later complication, without mention of misadventure at the time of the procedure
CPT/HCPCS: 0241U-QW; 36415; 71045-TC-FY; 74176-TC; 76000-TC-FY; 80053; 81003; 83735; 84100; 84703; 85025; 85610; 86850; 86900; 86901; 87040; 87086; 87186; 93005; 93010; 94760; 99285-25; C2617